=== PATIENT | male | born 1990 | race Caucasian/White ===

== ENCOUNTER 2018-11-24 18:07 | Emergency (ER) | payer MEDICARE, MEDICAID, SELFPAY ==
[2018-11-24 18:26] VITALS: BP 126/63; PULSE 71; RESP 14; TEMP 36.9; O2SAT 98
--- NOTE | 2018-11-24 18:48 | W.ED.GENAD ---
Discharge Plan Disposition Patient Disposition: HOME Condition: Stable Discharge Details Chief Complaint: Nk/Back Pain Clinical Impression: Fall, Back pain, H/O Spinal surgery Primary Care Provider: Marc Gibbs ED Provider: Komal Carbajal Home Meds and New Rx's Prescriptions: Continued albuterol sulfate 8.5 GM HFA aerosol inhaler 2 puff Inhalation Q6H PRN PRNQty: 1 RF: 0 ibuprofen [Ibuprofen IB] 200 MG tablet 600 mg PO BID PRNRF: 0 acetaminophen [Tylenol] 325 mg Tablet 325 mg PO Q4H PRNRF: 0 melatonin 5 MG tablet 5 mg PO HS PRN PRNRF: 0 Discharge Instructions Instructions: Back Pain (ED) Additional Instructions: Apply ice to the affected area several times daily for 20 minutes at a time. Alternate Tylenol and Motrin as needed and directed for pain. Follow-up with your primary care doctor in 1 week for reevaluation. Return immediately to the emergency department any worsening or concerning symptoms. Discharge Data Discharge Date/Time-TO BE ENTERED AT DEPARTURE: 11/24/18 20:10 Discharge Physician: Komal Carbajal Medical Decision Making 28yo M with a history of scoliosis with history of spinal implant in 2011 who presents for slip on ice and fall with twisting of his back yesterday. States he hit his left elbow and right knee but denies any pain in these areas. Patient states he is here mainly to assess his spinal implant. Tenderness to palpation along thoracic and lumbar spine. Well-healed vertical incision scar. No evidence of trauma or infection to back. Normal gait. Normal left elbow and right knee. No focal deficits. Neurovascular intact. Will give a dose of ibuprofen and sent for thoracic and lumbar spine x-ray. 1950 -- lumbar spine and thoracic spine x-rays negative. Patient feels better after ibuprofen. Patient instructed to follow-up with his primary care doctor for reevaluation and return here at any time if worse. Medical Records Medical records reviewed: Yes I reviewed the patient's medical records. Imaging Data Radiologic Study: Radiologist's impression: XR Thoracic Spine, 3 Views EXAM DATE/TIME: 11/24/2018 7:25 PM FINDINGS: Vertebrae: Moderate thoracic dextroscoliosis. Extensive thoracolumbar posterior fixation with no significant listhesis and a grossly satisfactory appearance of the hardware. No acute fracture or subluxation. Soft tissues: Normal. IMPRESSION: No acute bony pathology. XR Lumbar Spine, 4 or 5 Views EXAM DATE/TIME: 11/24/2018 7:25 PM FINDINGS: Vertebrae: Thoracolumbar fixation, lumbar fixation extending to the level of L3 in anatomic alignment with satisfactory appearance of the hardware. No acute fracture or subluxation. Minimal leftward curvature of the lumbar spine. Soft tissues: Normal. IMPRESSION: No acute bony pathology. HPI General Mode of arrival: ambulatory. Date/Time Provider Initiated Documentation: 11/24/18 18:26. Limitations to Documentation: no limitations. Information obtained by: patient. HPI Narrative: Patient is a 28yo M with a history of scoliosis with history of spinal implant in 2011 who presents for slip on ice and fall with twisting of his back yesterday. States he hit his left elbow and right knee but denies any pain in these areas. Patient states he is here mainly to assess his spinal implant. He denies any upper or lower extremity weakness or numbness. Patient states he took Motrin for pain this morning. Related Data Home Medications Medication Instructions Recorded Confirmed albuterol sulfate 2 puff INHALATION Q6H PRN PRN #1 12/18/14 11/24/18 [email or web address] ibuprofen [Ibuprofen IB] 600 mg PO BID PRN 05/07/16 11/24/18 melatonin 5 mg PO HS PRN PRN 12/27/17 11/24/18 acetaminophen [Tylenol] 325 mg PO Q4H PRN 11/24/18 11/24/18 Previous Rx's Medication Instructions Recorded albuterol sulfate 2 puff INHALATION Q6H PRN PRN #1 12/18/14 [email or web address] Allergies Allergy/AdvReac Type Severity Reaction Status Date / Time Sulfa (Sulfonamide AdvReac Unknown unknown Unverified 11/24/18 18:30 Antibiotics) tape Allergy Mild Skin Rash Uncoded 11/24/18 18:30 General Stated Complaint: Nk/Back Pain MICHAEL: 3 Review of Systems Review of Systems All systems reviewed & are unremarkable except as noted in HPI and below Constitutional Reports as per HPI, Denies chills and Denies fever(s) Eyes Denies blurry vision ENT Denies dizziness, Denies sore throat and Denies throat swelling Cardiovascular Denies chest pain and Denies dyspnea Respiratory Denies cough and Denies dyspnea Gastrointestinal Denies abdominal pain, Denies diarrhea and Denies vomiting Genitourinary Denies hematuria and Denies dysuria Musculoskeletal Reports back pain and Denies numbness Integumentary/Breasts Denies lesions and Denies rash Neurologic Denies dizziness, Denies focal weakness and Denies numbness Allergic/Immunologic Denies throat swelling [facility] Medical History ADHD (Acute) Asthma (Chronic) GERD (gastroesophageal reflux disease) (Chronic) Surgical History History of spinal fusion (Acute) History of appendectomy (Chronic) Social History Smoking/Tobacco Use Status: Never alcohol intake: current alcohol intake frequency: a few times a month substance use type: does not use Exam Const General: cooperative, healthy appearing and no acute distress HENMT Head: normal to inspection Face and sinus: normal facial exam Eyes General: appearance normal, both eyes and all related structures EOM: EOM intact bilaterally Neck Neck: normal visual inspection and No submandibular swelling Lymphatic: no lymphadenopathy noted Chest Chest: normal inspection of the chest and no tenderness Resp Effort & Inspection: normal respiratory effort and able to speak in complete sentences Auscultation: clear to auscultation bilaterally Cardio Rate: regular rate Rhythm: regular rhythm GI Inspection: normal to inspection Palpation: soft, not firm, not rigid and nontender Auscultation: normal bowel sounds Male General Exam: Yes normal external exam Back/Spine/Pelvis Thoracic/Lumbar Spine: surgical scar(s) present (Extending from length of upper thoracic spine down to end of lumbar spine. ) Pelvis: no pain with anterior-posterior compression Back/spine/pelvis image: 1. Midline surgical scar, well healed, no signs of acute infection. Significant tenderness to palpation extending along the length of scar which patient states is chronic but worse since fall Skin General skin exam: no rashes or lesions noted Neuro General: alert, awake and oriented x3 Cognition: normal cognition Speech: speech normal Motor: muscle tone normal throughout and strength 5/5 throughout Sensory Exam: no sensory deficits noted DTR's: Rt Patellar: 1+, Lt Patellar: 1+, Rt Ankle: 1+ and Lt Ankle: 1+ Plantar Reflexes: Equivocal: bilateral Extrem General: normal to inspection, full ROM, normal capillary refill, no calf tenderness bilaterally and no edema Left upper extremity: elbow/forearm Details: normal to inspection and normal ROM; no tenderness, no swelling, no lacerations, no ecchymosis, no crepitus and no deformity Right lower extremity: knee Details: normal to inspection and normal ROM; no tenderness, no swelling, no abrasions, no lacerations, no ecchymosis and no crepitus and foot Details: vascular exam Details: dorsalis pedis pulse present and posterior tibial pulse present Left lower extremity: foot Details: vascular exam Details: dorsalis pedis pulse present and posterior tibial pulse present Psych Appearance: grossly normal Mental Status: mental status grossly normal Speech and Movement: speech and movement normal Affect: normal affect Course Vital Signs Temperature 98.4 F 11/24/18 18:26 Pulse 71 11/24/18 18:26 Respiratory Rate 14 11/24/18 18:26 Blood Pressure 126/63 11/24/18 18:26 Pulse Oximetry 98 11/24/18 18:26 Temperature 98.4 F 11/24/18 18:26 Temperature Source Temporal Artery Scan 11/24/18 18:26 Pulse 71 11/24/18 18:26 Respiratory Rate 14 11/24/18 18:26 Respiratory Effort Non-Labored 11/24/18 18:29 Blood Pressure 126/63 11/24/18 18:26 Blood Pressure Position Sitting 11/24/18 18:26 Pulse Oximetry 98 11/24/18 18:26 Oxygen Delivery Method Room Air 11/24/18 18:26 Oxygen Flow Rate 0 11/24/18 18:26 Pain Level 8 11/24/18 18:32
[2018-11-24] MEDS: Ibuprofen 600 MG TAB PO (18:55)
--- NOTE | 2018-11-24 19:25 | DI.RAD_ITS ---
SYMPTOM/DIAGNOSIS: H/O SPINAL IMPLANT, H/O FALL, ASSESS HARDWARE, ? FX THORACIC AND LUMBAR SPINE: Three views of the thoracic spine and five views of the lumbar spine were obtained. There is a moderate biconvex thoracolumbar scoliosis with Redmond rods in position extending from upper thoracic to mid lumbar level. The fixation appears intact. No evidence of acute fracture. No other significant findings.
--- NOTE | 2018-11-24 19:32 | DI.VRAD_ITS ---
EXAM: XR Thoracic Spine, 3 Views EXAM DATE/TIME: 11/24/2018 7:25 PM CLINICAL HISTORY: 28 years old, male; Injury or trauma; Fall; Initial encounter; Blunt trauma (contusions or hematomas); Injury date: 11/24/18; Injury details: Back pain all over after fall; Prior surgery; Surgery date: 6+ months; Surgery type: Scoliosis hardware; Patient HX: Back pain after fall TECHNIQUE: XR of the thoracic spine, 3 views. COMPARISON: No relevant prior studies available. FINDINGS: Vertebrae: Moderate thoracic dextroscoliosis. Extensive thoracolumbar posterior fixation with no significant listhesis and a grossly satisfactory appearance of the hardware. No acute fracture or subluxation. Soft tissues: Normal. IMPRESSION: No acute bony pathology. Dictated and Authenticated by: Gina Estrada MD. Ordering:MANUEL Sauceda MD
--- NOTE | 2018-11-24 19:46 | DI.VRAD_ITS ---
EXAM: XR Lumbar Spine, 4 or 5 Views EXAM DATE/TIME: 11/24/2018 7:25 PM CLINICAL HISTORY: 28 years old, male; Injury or trauma; Fall; Initial encounter; Blunt trauma (contusions or hematomas); Injury date: 11/24/18; Prior surgery; Surgery date: 6+ months; Surgery type: Scoliosis hardware; Patient HX: Pain after fall TECHNIQUE: XR of the lumbar spine, 4 or 5 views. COMPARISON: CT ABD PELVIS WITH CONTRAST 12/25/2017 7:01 AM FINDINGS: Vertebrae: Thoracolumbar fixation, lumbar fixation extending to the level of L3 in anatomic alignment with satisfactory appearance of the hardware. No acute fracture or subluxation. Minimal leftward curvature of the lumbar spine. Soft tissues: Normal. IMPRESSION: No acute bony pathology. Dictated and Authenticated by: Gina Estrada MD. Ordering:MANUEL Sauceda MD
== END 2018-11-24 20:10 | disposition home or self-care (01) ==
PROVIDERS: Emergency Provider Physician Assistant; PCP Internal Medicine
DX: M54.5 Low back pain (principal); M54.6 Pain in thoracic spine; W01.0XXA Fall on same level from slipping, tripping and stumbling without subsequent striking against object, initial encounter
CPT/HCPCS: 99284; 72072; 72110; 99282

== ENCOUNTER 2020-08-22 15:59 | Outpatient (CLI) | payer MEDICARE, MEDICAID, SELFPAY ==
--- NOTE | 2020-08-22 14:15 | DI.RAD_ITS ---
EXAM: XR SHOULDER RT COMPLETE 2+V CLINICAL HISTORY: rt shoulder pain TECHNIQUE: COMPARISON: CR RIGHT SHOULDER COMPLETE from 10/02/2011 FINDINGS: Two views were obtained. Cartilaginous joint space of the glenohumeral joint appears fairly well romelia ntained. No bony or soft tissue abnormality seen. IMPRESSION: RADIATION DOSE DELIVERED: Total DLP
--- NOTE | 2020-08-22 14:30 | DI.RAD_ITS ---
EXAM: XR SCOLIOSIS T-L SPINE CLINICAL HISTORY: rt shoulder pain TECHNIQUE: COMPARISON: CR XR thoracic spine complete from 11/24/2018 FINDINGS: Three views were obtained. There is a moderate biconvex thoracolumbar scoliosis with Redmond rods in place from approximately T3 through L3. Rods appear intact as visualized. No other significant bony abnormality seen. IMPRESSION: RADIATION DOSE DELIVERED: Total DLP
--- NOTE | 2020-08-22 14:30 | DI.RAD_ITS ---
EXAM: XR CERVICAL SP DE LEON TRAUMA 2-3V CLINICAL HISTORY: prior fusion TECHNIQUE: COMPARISON: No exams were available for comparison FINDINGS: Two views were obtained. Alignment appears normal. Intervertebral disc spaces are well maintained. No bony abnormality seen. Prevertebral soft tissues appear intact. IMPRESSION: Negative examination of the cervical spine. RADIATION DOSE DELIVERED: Total DLP
== END 2020-08-22 16:19 ==
PROVIDERS: PCP Internal Medicine; Referring Provider Internal Medicine; Visit Provider Student in an Organized Health Care Education/Training Program
DX: M25.511 Pain in right shoulder (principal); Z98.1 Arthrodesis status; M54.12 Radiculopathy, cervical region; W00.0XXA Fall on same level due to ice and snow, initial encounter
CPT/HCPCS: 72081; 99204; 99215; 72040; 73030

== ENCOUNTER → 2020-09-05 15:00 | Outpatient (BNVA) | payer MEDICARE, MEDICAID, SELFPAY | PROVIDERS: PCP Internal Medicine; Referring Provider Internal Medicine; Visit Provider Student in an Organized Health Care Education/Training Program | DX: M54.2 Cervicalgia (principal); M54.6 Pain in thoracic spine; G89.29 Other chronic pain; M54.12 Radiculopathy, cervical region; M75.21 Bicipital tendinitis, right shoulder; M75.22 Bicipital tendinitis, left shoulder | CPT/HCPCS: 99213 ==

== ENCOUNTER → 2020-09-14 13:54 | Outpatient (BNVA) | payer MEDICARE, MEDICAID, SELFPAY | PROVIDERS: PCP Internal Medicine; Referring Provider Family Medicine; Visit Provider Nurse Practitioner Adult Health | DX: M54.12 Radiculopathy, cervical region (principal) | CPT/HCPCS: 95886; 95909; 99203; 99214 ==

== ENCOUNTER → 2020-11-21 14:56 | Outpatient (BNVA) | payer MEDICARE, MEDICAID, SELFPAY | PROVIDERS: PCP Internal Medicine; Referring Provider Internal Medicine; Visit Provider Student in an Organized Health Care Education/Training Program | DX: M75.21 Bicipital tendinitis, right shoulder (principal); M75.22 Bicipital tendinitis, left shoulder; M54.2 Cervicalgia; M54.6 Pain in thoracic spine; G89.29 Other chronic pain; M54.12 Radiculopathy, cervical region | CPT/HCPCS: 99213; 99214 ==

== ENCOUNTER → 2021-03-06 07:57 | Outpatient (BNVA) | payer MEDICARE, MEDICAID, SELFPAY | PROVIDERS: PCP Internal Medicine; Referring Provider Internal Medicine; Visit Provider Student in an Organized Health Care Education/Training Program | DX: M75.21 Bicipital tendinitis, right shoulder (principal); M75.22 Bicipital tendinitis, left shoulder; M54.2 Cervicalgia; M54.6 Pain in thoracic spine; G89.29 Other chronic pain | CPT/HCPCS: 99213 ==

== ENCOUNTER → 2021-04-24 08:20 | Outpatient (BNVA) | payer MEDICARE, MEDICAID, SELFPAY | PROVIDERS: PCP Internal Medicine; Referring Provider Internal Medicine; Visit Provider Student in an Organized Health Care Education/Training Program | DX: M75.21 Bicipital tendinitis, right shoulder (principal); M75.22 Bicipital tendinitis, left shoulder; M25.511 Pain in right shoulder; M75.51 Bursitis of right shoulder; M75.41 Impingement syndrome of right shoulder; M54.6 Pain in thoracic spine; G89.29 Other chronic pain; M54.2 Cervicalgia; M54.12 Radiculopathy, cervical region | CPT/HCPCS: 99214 ==

== ENCOUNTER 2021-05-02 02:15 | Outpatient (CLI) | payer MEDICARE, MEDICAID, SELFPAY ==
[2021-05-02 11:08] LABS: Source Nasal/Nares
[2021-05-02 13:31] LABS: COVID-19 PCR Negative (Negative)
== END 2021-05-02 02:16 | disposition home or self-care (01) ==
LOC: LBO 02:16
PROVIDERS: PCP Internal Medicine; Visit Provider Student in an Organized Health Care Education/Training Program
DX: Z20.822 Contact with and (suspected) exposure to COVID-19 (principal); Z01.818 Encounter for other preprocedural examination
CPT/HCPCS: 87635

== ENCOUNTER 2021-05-04 06:16 | Day surgery (SDC) | payer MEDICARE, MEDICAID, SELFPAY ==
[2021-05-04] VITALS (10 sets, daily range): BP systolic 87–119; BP diastolic 45–76; PULSE 75–89; RESP 16–27; TEMP 36.2–36.3; O2SAT 92–97; BMI 27.3
--- NOTE | 2021-05-04 06:58 | W.ANESPRE ---
General Info Date of Service Date Performed: 05/04/21 Height: 5 ft 6.14 in Weight: 77.2 kg Body Mass Index (BMI): 27.3 Surgical Procedure: Operation Date: 05/04/21 07:40 Proposed Procedures Side Surgeon p Shoulder Arthroscopy with extensive debridement,subacromial decompression, distal clavicle exc Right Daryl Gutierrez MD s Shoulder Bicep Tenodesis Right Daryl Gutierrez MD Meds Allergies and Home Medications Allergies Allergy/AdvReac Type Severity Reaction Status Date / Time erythromycin base Allergy Verified 05/02/21 11:00 Sulfa (Sulfonamide AdvReac Intermediate Hives Unverified 05/02/21 11:00 Antibiotics) tape Allergy Severe Skin Rash Uncoded 05/02/21 11:00 Home Medication Medication Instructions Recorded ibuprofen [Ibuprofen IB] 600 mg PO BID PRN 05/07/16 acetaminophen [Tylenol] 325 mg PO Q4H PRN 11/24/18 naproxen 500 mg tablet,delayed 500 mg PO BID PRN 09/14/20 release omeprazole 20 mg capsule,delayed 20 mg PO DAILY PRN 11/21/20 release Current Visit Medications: Current Medications Generic Name Dose Route Start Last Admin Trade Name Freq PRN Reason Stop Dose Admin Ephedrine Sulfate 0 mg 05/04/21 06:36 Ephedrine 50 Mg/Ml Vial IVP DIRECTED PRN Fentanyl 0 mcg 05/04/21 06:36 Fentanyl 100 Mcg/2 Ml Vial IVP DIRECTED PRN Hydromorphone HCl 0 mg 05/04/21 06:36 Hydromorphone 2 Mg/Ml Vial IVP DIRECTED PRN Ringer's Solution 1,000 mls @ 100 mls/hr 05/04/21 06:00 IV 06/02/21 23:59 INFUSION ANGI Cefazolin Sodium/Dextrose 2 gm in 50 mls @ 100 mls/hr 05/04/21 06:00 Ancef Duplex IVPB 06/02/21 23:59 PREOP ANGI IV Miscellaneous Supplies 1 each 05/04/21 06:00 Iv Access IV 06/02/21 23:59 DIRECTED ANGI Naloxone HCl 0 mg 05/04/21 06:36 Naloxone 0.4 Mg/Ml Vial IVP PRN PRN Sodium Chloride 0 ml 05/04/21 06:00 Normal Saline Flush 10 Ml Syr IV 06/02/21 23:59 PRN PRN Sodium Chloride 0 ml 05/04/21 06:00 Normal Saline 10 Ml Vial IJ 06/02/21 23:59 DIRECTED PRN Sterile Water 0 ml 05/04/21 06:00 Water,Injection,Sterile 10 Ml Vial IJ 06/02/21 23:59 DIRECTED PRN PFSH Active Problems Active Problems: Problem Status Onset Code Impingement syndrome of right shoulder M75.41 Bursitis of right shoulder M75.51 Pain in right acromioclavicular joint M25.511 Tendinitis of long head of biceps brachii of both shoulders M75.21, M75.22 Chronic thoracic back pain M54.6, G89.29 Cervicalgia M54.2 Cervical radiculopathy M54.12 Medical History Medical History ADD (attention deficit disorder) ADHD Aspergers' syndrome Asthma Dysphonia GERD (gastroesophageal reflux disease) Pain in left shoulder Right foot pain Right hand weakness Right shoulder pain Scoliosis Sleep apnea Thoracic back pain Surgical History Surgical History History of appendectomy History of spinal fusion Tobacco Smoking/Tobacco Use Status: Never Alcohol Alcohol Intake: current Alcohol intake frequency: holidays/special occasions only Substance Use Substance use: Daily Substance use type: other Details: CBD Vital Signs and Lab Results Vital Signs Most Recent Vital Signs in EMR: Most Recent Vital Signs Temp Pulse Resp BP Pulse Ox 36.3 C L 75 16 119/76 97 05/04/21 06:26 05/04/21 06:26 05/04/21 06:26 05/04/21 06:26 05/04/21 06:26 Lab Results Blood Type / Crossmatch: No Data to Display Complete Blood Count: No Data to Display Complete Metabolic Panel: No Data to Display Liver Function Panel: No Data to Display Coagulation Panel: No Data to Display Cardiac Panel: No Data to Display Arterial Blood Gas: No Data to Display Venous Blood Gas: No Data to Display Pancreas Panel: No Data to Display Thyroid Panel: No Data to Display Infectious Disease: Coronavirus (COVID-19)(PCR) Negative (Negative) 05/02/21 08:26 05/02/21 Coronavirus 2019 Source Nasal/Nares 05/02/21 08:26 05/02/21 Blood Cultures: No Data to Display Toxicology Panel: No Data to Display Anesthesia Assessment and Plan Anesthesia History Personal History: No History of Anesthesia Complications Family History: No Family History of Anesthesia Complications Exercise Tolerance Exercise Tolerance: Metabolic Equivalents>4 Pertinent Negatives Pertinent Negatives: No Major Cardiovascular Symptoms or Complaints and No Major Pulmonary Symptoms or Complaints Cardiac & Pulmonary Exam Cardiac Exam: Normal S1/S2 Heart Sounds Pulmonary Exam: Clear Bilateral Breath Sounds Airway Exam Known Difficult Airway: No Mallampati Class: 2 Mouth Opening: Normal (> 3cm) Thyromental Distance: Greater than 3 cm Neck Range of Motion: Full ROM Neck Circumference: Normal Teeth Condition: Normal Dentition ASA Classification ASA Score: ASA 2 Emergency Case?: No NPO Status NPO Status: NPO Clears >2 hours, Solids >8 hours Anesthesia Plan Resuscitation Status: Full Code Anesthesia Technique: General Anesthesia Airway Planned: Endotracheal Tube Pain Management: Surgeon and patient request nerve block Monitors Used: Standard Monitors
[2021-05-04] MEDS: ceFAZolin 2 GM/50 ML BAG IVPB (08:01)
--- NOTE | 2021-05-04 08:26 | W.ANESNERVE ---
Nerve Block Single Injection Procedure Date and Time Date Performed: 05/04/21 Procedure Start: 07:25 Location Where Procedure Performed Procedure Location: PACU Reason Performed: Postoperative Analgesia Requesting Provider: Daryl Gutierrez Timeout Performed Timeout Performed: No Monitoring Used ECG, Blood Pressure and SpO2 Sterility Sterility: Hand Hygiene, Surgical Cap, Surgical Mask, Sterile Gloves, Sterile Drape/Sheet, Eye Protection and Chlorhexidine Sedation Given During Procedure Sedation Given (Indicate Dose Given): Versed IV Dose:: 2 Patient Mental Status Patient Mental Status: Awake Nerve Block 1st Nerve Block: Laterality: Right Block Type: Interscalene Needle / Catheter Used: 100mm SonoPlex II Local Anesthetic Bolus (Indicate Dose Given): Lidocaine used for local infiltration of skin, Injected in 3-5ml increments after negative blood aspiration, Bupivacaine 0.5% Dose:: 15 mL and Exparel Dose:: 10 mL Additives (Indicate Dose Given): None Ultrasound: Sterile probe cover and gel used Ultrasound Image Saved?: Yes Nerve Stimulator: Not Used Paresthesia: None Procedure Tolerated: No Complications Procedure Outcome: Successful Performed By: Yessica Raya
[2021-05-04] MEDS: Bupivacaine 0.5% Pres-Free 30 ML VIAL (09:48)
[2021-05-04] MEDS: Lactated Ringers 1,000 ML 100 ML IV (09:49)
[2021-05-04] MEDS: EPINEPHrine 30 MG/30 ML VIAL (09:49)
--- NOTE | 2021-05-04 10:05 | PDOC.DSDIS_ITS ---
Discharge Plan Disposition Patient Disposition: HOME Condition: Stable Discharge Details Reason For Visit: Right shoulder surgery Attending Provider: Daryl Gutierrez Primary Care Provider: Marc Gibbs Home Meds and New Rx's Prescriptions: New aspirin 81 mg tablet,delayed release (DR/EC) 81 mg PO BID 14 Days Qty: 28 RF: 0 naproxen 250 mg tablet 250 - 500 mg PO BID PRN (Reason: Moderate pain or swelling) Qty: 60 RF: 0 oxycodone 5 mg tablet 5 - 10 mg PO Q4H PRN (Reason: moderate to severe pain) Qty: 16 RF: 0 Continued omeprazole 20 mg capsule,delayed release(DR/EC) 20 mg PO DAILY PRNRF: 0 acetaminophen [Tylenol] 325 mg Tablet 325 mg PO Q4H PRNRF: 0 Discontinued naproxen 500 mg tablet,delayed release (DR/EC) 500 mg PO BID PRNRF: 0 ibuprofen [Ibuprofen IB] 200 MG tablet 600 mg PO BID PRNRF: 0 Discharge Instructions Additional Instructions: Surgery: Shoulder arthroscopy with extensive debridement, distal clavicle ex cision, subacromial decompression, and open biceps tenodesis. Activity: You should gradually increase range of motion motion and use of your shoulder. You may use your shoulder for all regular activities. Avoid heavy lifting, reaching overhead, and lifting away from body for approximately 6 to 8 weeks. You may use the sling whenever you are out of the house for a few weeks. At home it is best to remove the sling and rest the arm on a pillow at your side or support the operative side with your other hand. A physical therapy prescription will be sent electronically to start in about 2-3 weeks. Prescriptions: Aspirin 81 mg take 1 twice daily to prevent a blood clot for 2 weeks Naproxen 250 mg take 1-2 every 12 hours with a meal as needed for moderate pain Oxycodone 5 mg take 1-2 every 4-6 hours as needed for severe pain You may use [id number] Tylenol (acetaminophen) as needed for mild pain. These pain medications may be taken all at once or in different combinations as needed. Also, recommend Colace (docusate) as a stool softener as surgery and pain medicine cause constipation. Dressings: Remove shoulder bandage after 3 days. Leave the sticky Steri-Strips in place until they fall off or remove them after you shower. Cover the incisions with Band-Aids or leave them open to air. The biceps bandage (inside upper arm) is glued on separately. You may leave this one on a few days longer if it is difficult to remove. There is also glue underneath this bandage that can be left in place until it peels off. You may shower after 5 days. Follow-up: 10-[address] Gutierrez You may take off the leg compression stockings this evening at home. You may also leave them on a few days longer if you have a history of leg swelling or edema. Let us know right away if you develop any redness, drainage, fevers, chest pain, or trouble breathing. Do not drink alcohol or drive for at least 24 hours after anesthesia. Please call the office during business hours with any questions or concerns. Referrals: Daryl Gutierrez MD [ [facility] STAFF PHYSICIAN] - Discharge Orders Discharge Orders: Discharge Order (Routine); Ordered 05/04/21 Ordered By: Daryl Gutierrez DS: Diagnosis Discharge Diagnosis (1) Impingement syndrome of right shoulder: Status: Acute (2) Bursitis of right shoulder: Status: Acute (3) Pain in right acromioclavicular joint: Status: Acute (4) Tendinitis of long head of biceps brachii of both shoulders: Status: Acute
--- NOTE | 2021-05-04 10:13 | ROE_ITS ---
Date of service: 05/04/21 Time of Service: 08:00 Operative Note Operative Note DATE OF PROCEDURE: 05/04/21 PRE-OP DIAGNOSIS: Right: 1. Labral tear 2. LHB tendinopathy 3. Bursitis 4. Impingement 5. AC Joint pain POST-OP DIAGNOSIS: same PROCEDURE: Right: 1. Arthroscopic distal clavicle excision, CPT# 47520. This involved arthroscopically exposing the underside of the acromioclavicular joint, smoothing out bone spurs, and using a mechanical shaver to remove a few millimeters of the distal clavicle so there was no bone left engaging the acromion. 2. Open biceps tenodesis, CPT# 46653. This involved reattaching the long head of the biceps tendon to the proximal humerus in the sub-pectoral area of the bicipital groove at the correct tension. 3. Extensive debridement, CPT# 39792. This involved using arthroscopic hand instruments, power instruments, and radiofrequency instruments to release to release the long head of the biceps tendon and debride areas of labral tearing, synovitis within the glenohumeral joint anteriorly, superiorly and posteriorly, and chondromalacia with cartilage fraying and small flaps about the central glenoid. 4. Subacromial decompression with partial acromioplasty, CPT# 55976. This involved using arthroscopic power instruments and a radiofrequency wand to complete a bursectomy and remove bone spurs on the undersurface of the acromion. The speech correction assistant was medically required in order to help assist in techniques above, which require positioning the arm, holding the arthroscope, and manipulating multiple instruments and sutures at the same time. This cannot be done without the help of an experienced speech correction assistant. SURGEON: Daryl Gutierrez INTERVENTION MANAGER: Keysha Tsang ANESTHESIA TYPE: Local By Surgeon, General LMA/ETT and Primary Nerve Block Refer to Anesthesia Record ESTIMATED BLOOD LOSS: 5 PATHOLOGY: none sent COMPLICATIONS: None Patient was transported to: PACU Patient's condition: stable Implants: Arthrex: Unicortical Proximal Biceps Tenodesis Button Indications: The patient was diagnosed with the above conditions and appropriat jason indicated for surgical intervention. Please see complete medical record for details. Findings: Exam under anesthesia: Full range of motion with no instability Glenohumeral joint: Mild anterior central labral fraying. Moderate superior and posterior superior labral fraying. Intact biceps anchor however with somewhat redundant labral tissue. Moderate long head of the biceps tendon injection. Moderate anterior and posterior synovitis. Intact articular rotator cuff. Intact subscapularis. Small 2-3 mm central glenoid grade 3 cartilage lesion. Humeral head articular cartilage intact. Subacromial space: Significant bursitis. Mild undersurface acromial bone spur. Mildly engaging distal clavicle on acromion. Intact bursal rotator cuff. Procedure Description: In the operating room, general anesthesia was induced. Bilateral shoulders were examined. The patient was positioned in the beachchair position. All bony prominences were well-padded. Preoperative antibiotics were administered. The shoulder was prepped and draped in the usual sterile fashion. The correct patient, procedure, and side of the procedure were all verified prior to incision. Starting through the posterior portal a standard complete diagnostic arthroscopy was performed of the glenohumeral joint including inspection of the long head of the biceps, anterior and superior labrum, subscapularis tendon, supraspinatus and infraspinatus tendons, and axillary recess. The glenoid and humeral head cartilage as well as the posterior labrum were inspected from an anterior viewing portal. Significant findings and interventions noted above. The biceps tendon was released from the superior labrum using arthroscopic scissors. The anterior portal was redirected towards the undersurface of the AC joint. A shaver and electrocautery device were used to clear soft tissue from the undersurface of the AC joint. A mechanical shaver was then inserted and used to remove the distalmost few millimeters of the distal clavicle. Care was taken to ensure that proper amount of bone was removed and there was no engaging bone left behind while preserving posterior and superior capsule. A lateral portal was omitted. A combination of power instruments and a radiofrequency ablator were used through the anterior portal to debride bursitis anteriorly, posteriorly, and laterally as well as expose and smooth bone spurring on the undersurface of the acromion. The coracoacromial ligament was only minimally released. The bursectomy was completed with the arm in internal and external rotation and the rotator cuff was thoroughly inspected with findings noted above. The shoulder was drained of arthroscopic fluid. 20 cc of 0.5% bupivacaine with epinephrine was infiltrated about a 3 cm longitudinal incision at the inferior margin of the pectoralis major localized over the long head of the biceps tendon. Blunt and sharp dissection were used to expose the tendon in the bicipital groove. The tendon was brought out of the wound and kept off the skin on top of a blue towel. The correct location for sub-pectoral fixation was localized, prepped with a rasp, and then drilled with a 3.2 mm drill pin in a unicortical fashion. Using a fiber loop suture the tendon was prepped from the musculotendinous junction a few centimeters proximal. The excess tendon was amputated. The free suture ends were then passed through the unicortical button implant. The drill pin was removed and the implant was placed into the humeral intramedullary canal. The button was flipped and the sutures were tensioned bringing the tendon down to bone. Tension and fixation were then tested and found to be appropriate. The free end of the sutures were brought on opposite sides of the tendon and then tied over the top compressing tendon to bone. The wound was copiously irrigated with normal saline. Subcutaneous tissue was closed using 3-0 Monocryl in a buried interrupted fashion. Skin was closed using 3-0 Monocryl in a buried subcuticular running fashion. Skin glue was applied over the incision. Mastisol was applied about the incision. The incision was covered with Telfa, gauze, and covered with a Tegaderm dressing. All portal sites were copiously irrigated. These incisions were closed using 3- 0 Monocryl in a buried fashion and covered with Steri-Strips, Xeroform, dry gauze, and ABDs. The dressings were covered and secured with Medipore tape. The operative extremity was placed into a sling for immobilization. The patient awoke from anesthesia without complication and was transferred to the recovery room in a stable condition.
--- NOTE | 2021-05-04 13:46 | W.ANESPOSTOP ---
Postoperative Evaluation Date, Time and Location Date Performed: 05/04/21 Time Performed: 11:38 Patient Location: Day Surgery Unit Vital Signs Most Recent Imported Vital Signs: Most Recent Vital Signs Temp Pulse Resp BP Pulse Ox 36.2 C L 89 16 102/68 93 05/04/21 12:31 05/04/21 12:31 05/04/21 12:31 05/04/21 12:31 05/04/21 12:31 Pain Score Most Recent Pain Score: Most Recent Pain Score Pain Level 0 05/04/21 12:31 Assessment Mental Status: Awake (Alert & Oriented to Patient Baseline) Airway and Respiratory Function: Patent airway with normal (patient baseline) respiratory exam Cardiovascular Function: Hemodynamically Stable Hydration Status: Adequately Hydrated Nausea & Vomiting: No Nausea or Vomiting Pain: Pt. Denies Any Pain Peripheral Nerve Block: Regional nerve block not resolved at time of post operative discharge
== END 2021-05-04 14:30 | disposition home or self-care (01) ==
PROVIDERS: PCP Internal Medicine; Visit Provider Student in an Organized Health Care Education/Training Program
PROC: (CPT 29805; principal; 2021-05-04 07:30)
PROC: (CPT 23430; 2021-05-04 07:30)
DX: M75.41 Impingement syndrome of right shoulder (principal); M75.51 Bursitis of right shoulder; M75.21 Bicipital tendinitis, right shoulder; S43.491A Other sprain of right shoulder joint, initial encounter
CPT/HCPCS: 23430; 29824; 29823; 29826; 76942; J0131; J0690; J1100; J1885; J2001; J2250; J2405

== ENCOUNTER → 2021-05-16 09:04 | Outpatient (BNVA) | payer MEDICARE, MEDICAID, SELFPAY | PROVIDERS: PCP Internal Medicine; Referring Provider Internal Medicine; Visit Provider Student in an Organized Health Care Education/Training Program | DX: Z47.89 Encounter for other orthopedic aftercare (principal); M75.41 Impingement syndrome of right shoulder; M75.51 Bursitis of right shoulder; M25.511 Pain in right shoulder; M75.21 Bicipital tendinitis, right shoulder ==

== ENCOUNTER → 2021-07-04 08:54 | Outpatient (BNVA) | payer MEDICARE, MEDICAID, SELFPAY | PROVIDERS: PCP Internal Medicine; Referring Provider Internal Medicine; Visit Provider Student in an Organized Health Care Education/Training Program | DX: Z47.89 Encounter for other orthopedic aftercare (principal); M75.21 Bicipital tendinitis, right shoulder; M75.41 Impingement syndrome of right shoulder; M75.51 Bursitis of right shoulder ==

== ENCOUNTER → 2021-09-05 07:50 | Outpatient (BNVA) | payer MEDICARE, MEDICAID, SELFPAY | PROVIDERS: PCP Internal Medicine; Referring Provider Family Medicine; Visit Provider Student in an Organized Health Care Education/Training Program | DX: Z47.89 Encounter for other orthopedic aftercare (principal); M25.511 Pain in right shoulder ==

== ENCOUNTER 2021-09-09 02:15 | Emergency (ER) | payer MEDICARE, MEDICAID, SELFPAY ==
[2021-09-09 02:18] VITALS: BP 125/80; PULSE 85; RESP 18; TEMP 36.8; O2SAT 98
--- NOTE | 2021-09-09 02:22 | ED.GENADUL_ITS ---
Discharge Plan Disposition Patient Disposition: HOME Condition: Good Discharge Details Clinical Impression: Acute tonsillitis Primary Care Provider: Jose Astorga ED Provider: Ivan Saenz Meds and New Rx's Prescriptions: New clindamycin HCl 300 mg capsule 300 mg PO Q6H Qty: 20 RF: 0 Continued methylphenidate HCl [Concerta] 18 mg tablet extended release 24hr 18 mg PO DAILY RF: 0 omeprazole 20 mg capsule,delayed release(DR/EC) 20 mg PO DAILY PRNRF: 0 naproxen 250 mg tablet 250 - 500 mg PO BID PRN (Reason: Moderate pain or swelling) Qty: 60 RF: 0 Changed acetaminophen [Tylenol] 325 mg Tablet 650 mg PO Q6H PRN PRNQty: 0 RF: 0 Discharge Instructions Instructions: Tonsillitis (ED) Additional Instructions: There is no evidence of abscess on CAT scan. You should improve with the steroids and antibiotics. Be sure to drink plenty of fluids. May use acetaminophen and naproxen for pain. Cepacol lozenges are also likely to help. Follow-up with primary care next week if not improving. Return to ED for new or worsening symptoms especially inability to swallow, respiratory difficulty, other concerns. There is a Covid swab pending so you should quarantine at home until results. Stand Alone Forms: PENDING COVID-19 TESTING Referrals: Jose Astorga MD [Primary Care Provider] - Medical Decision Making Patient presenting with sore throat and associated difficulty swallowing, hoarseness, pain at the base of his tongue, pain with movement of his neck. No evidence clinically of peritonsillar abscess. Consider retropharyngeal abscess. IV established and fluids, clindamycin, dexamethasone, ketorolac ordered. Will obtain rapid strep, Monospot, CBC and BMP. Covid swab sent. CT of the neck to evaluate for abscess. Rapid strep negative. Monospot negative. CBC and BMP unremarkable. CT scan without abscess. Acute tonsillitis by CT. We will plan discharge on clindamycin, supportive care, follow-up PCP next week if not improving. Return to ED if new or worsening symptoms. Lab Data Lab results reviewed: Yes I reviewed the patient's lab results. HPI General Mode of arrival: ambulatory . Date/Time Provider Initiated Documentation: 09/09/21 02:19 . Limitations to Documentation: no limitations . Information obtained by: patient and RN notes reviewed . HPI Narrative: Patient presents to ED with sore throat that started 3 days ago. Unable to sleep tonight because of pain, difficulty swallowing, difficulty breathing. He denies any fever. He does have ear pain, pain at the back of his tongue, pain in his neck with swallowing or movement. He is hoarse. He denies chest pain, abdominal pain, muscle pain, joint pain. He has no rash. Denies nasal congestion or discharge. Does have a cough but thinks it is more related to secretions. He does not have any shortness of breath. He is vaccinated against Covid. Related Data Home Medications Medication Instructions Recorded Confirmed omeprazole 20 mg capsule,delayed 20 mg PO DAILY PRN 11/21/20 09/05/21 release naproxen 250 - 500 mg PO BID PRN #60 tab 05/04/21 09/09/21 methylphenidate HCl 18 mg 18 mg PO DAILY 07/04/21 09/09/21 tablet,extended release 24 hr acetaminophen [Tylenol] 650 mg PO Q6H PRN PRN #0 tab 09/09/21 09/09/21 clindamycin HCl 300 mg PO Q6H #20 cap 09/09/21 Previous Rx's Medication Instructions Recorded naproxen 250 - 500 mg PO BID PRN #60 tab 05/04/21 acetaminophen [Tylenol] 650 mg PO Q6H PRN PRN #0 tab 09/09/21 clindamycin HCl 300 mg PO Q6H #20 cap 09/09/21 Allergies Allergy/AdvReac Type Severity Reaction Status Date / Time erythromycin base Allergy Verified 09/09/21 03:11 Sulfa (Sulfonamide AdvReac Intermediate Hives Unverified 09/09/21 03:11 Antibiotics) tape Allergy Severe Skin Rash Uncoded 09/09/21 03:11 General Stated Complaint: Sorethroat MICHAEL: 4 Review of Systems Narrative: As documented in HPI otherwise negative as below. Const: no fever, chills, weakness Resp: no SOB, pleuritic pain CV: no CP, diaphoresis, edema, syncope GI: no abdominal pain, nausea, vomiting, diarrhea Neuro: no headache, numbness, focal weakness, confusion PFSH Medical History ADHD Aspergers' syndrome Asthma Dysphonia GERD (gastroesophageal reflux disease) Scoliosis Sleep apnea Surgical History History of appendectomy History of spinal fusion Social History Smoking/Tobacco Use Status: Never Smoking risk assessment performed?: Yes Alcohol Intake: current Alcohol Intake frequency: holidays/special occasions only Drug use: Daily Substance use type: other Details: CBD Household members: none Housing: apartment Pets and animals: Yes Pets and animals: dog(s) Current gender identity: male What type of physical activity do you participate in: walking Seatbelt use: always Do you feel safe at home: Yes Do you feel safe in your relationship?: Yes Exam Narrative Exam Narrative: Const: WDWN male in NAD. HEENT: NC/AT. Normal facial exam. OP with enlarged but symmetrical tonsils. Erythema but no exudates. Uvula mildly swollen. TMs clear. Eyes: Normal conjunctiva and sclera. Neck: Supple. Trachea midline. Some tender cervical adenopathy. Lungs: Normal respiratory effort. Lungs are clear. Cor: RRR without murmur/gallop. Neuro: A+O x 3. Normal speech, mentation, gait. Cranial nerves II - XII grossly intact. No gross motor or sensory deficit. Ext: No C/C/E. Skin: Warm and dry without rash. Course Vital Signs Vital signs: Vital Signs Temperature 98.2 F 09/09/21 02:18 Pulse 85 09/09/21 02:18 Respiratory Rate 18 09/09/21 02:18 Blood Pressure 125/80 09/09/21 02:18 Pulse Oximetry 98 09/09/21 02:18 Temperature 98.2 F 09/09/21 02:18 Temperature Source Tympanic 09/09/21 02:18 Pulse 85 09/09/21 02:18 Respiratory Rate 18 09/09/21 02:18 Blood Pressure 125/80 09/09/21 02:18 Blood Pressure Position Sitting 09/09/21 02:18 Pulse Oximetry 98 09/09/21 02:18 Oxygen Delivery Method Room Air 09/09/21 02:18 Oxygen Flow Rate 0 09/09/21 02:18 Pain Level 7 09/09/21 02:18
--- NOTE | 2021-09-09 02:30 | DI.CT_ITS ---
Exam(s) CT NECK W EXAM: CT NECK W CLINICAL HISTORY: throat pain/swelling; unable to swallow. TECHNIQUE: Imaging Protocol: Axial computed tomography images with coronal and sagittal reformatted images were created and reviewed. CONTRAST MATERIAL: Intravenous: Omnipaque 350 Contrast volume:100 mL COMPARISON: No exams were available for comparison FINDINGS: Orbits and orbital soft tissues: Within normal limits. Visualized paranasal sinuses: Within normal limits. Nasopharynx: Within normal limits. Oropharynx: There is prominence of the palatine tonsils bilaterally. No focal fluid collection is se en to suggest an abscess. Hypopharynx: Within normal limits. Larynx: Within normal limits. Retropharyngeal space: Within normal limits. Parotids/submandibular: Within normal limits. Thyroid gland: Within normal limits. Lymphadenopathy: Mildly enlarged reactive lymph nodes bilaterally at the level of the angle of the m andible. The largest is on the left and measures 1 cm in short axis. Trachea: Within normal limits. Lung apices: Within normal limits. Bones: Within normal limits. Carotids/Jugular: Within normal limits. Soft tissues: Within normal limits. IMPRESSION: Acute tonsillitis. RADIATION DOSE DELIVERED: 371.86mGy.cm Total DLP 371.86mGy.cm Total DLP DATA REPOSITORY: All CT scans at this facility are submitted to the National Radiology Data Registry (NRDR) Dose Index Registry (DIR) with the [employer] ([employer]). RADIATION OPTIMIZATION: All CT scans at this facility use at least one of these dose optimization te chniques: automated exposure control; mA and/or kV adjustment per patient size (includes targeted exa ms where dose is matched to clinical indication); or iterative reconstruction.
[2021-09-09 02:57] LABS: Mono Screening Negative (Negative)
[2021-09-09] MEDS: Dexamethasone 10 MG/ML VIAL IVP (03:00)
[2021-09-09] MEDS: Ketorolac 30 MG/ML VIAL IVP (03:01)
[2021-09-09] MEDS: Normal Saline 1,000 ML 1000 ML IV (03:03)
[2021-09-09 03:06] LABS: BUN 18 mg/dL (7-18); CREATININE 0.9 mg/dL (0.70-1.30); Calcium 8.7 mg/dL (8.5-10.1); Chloride 106 mmol/L (98-107); Glucose 97 mg/dL (74-106); Potassium 3.7 mmol/L (3.5-5.1); Sodium 146 mmol/L (136-145)
[2021-09-09 03:10] LABS: Abs Immature Grans 0.01 10^3/uL (0.0-0.06); Absolute Basophil Count 0.06 10^3/uL (0.0-0.2); Absolute Eosinophil Count 0.18 10^3/uL (0.0-0.7); Absolute Lymphocyte Count 2.02 10^3/uL (1.2-3.4); Absolute Monocyte Count 0.83 10^3/uL (0.1-0.8); Absolute Neutrophil Count 5.35 10^3/uL (1.2-6.7); Basophils % 0.7; Eosinophils % 2.1; HCT 45.2 % (40.0-50.0); HGB 14.9 g/dL (13.5-17.5); Immature Grans % 0.1; Lymphocytes % 23.9; MCH 27.4 pg (27.0-33.0); MCV 83.1 fL (80-95); MPV 9.7 fL (8.0-11.0); Monocytes % 9.8; Neutrophils % 63.4; Nucleated RBC 0 %; Platelet Count 321 10^3/uL (130-400); RBC 5.44 10^6/uL (4.36-5.78); RDW 12.3 % (11.8-14.1); RDW-SD 37.1 fL; WBC 8.45 10^3/uL (4.4-10.8)
[2021-09-09] MEDS: CLINDAMYCIN 600 MG/50 ML BAG 100 MG IVPB (03:11)
[2021-09-09] MEDS: Normal Saline - Diluent 50 ML VIAL IV (03:19)
[2021-09-09] MEDS: Omnipaque 350 MG/ML 100 ML BTL IJ (03:19)
--- NOTE | 2021-09-09 03:29 | DI.VRAD_ITS ---
PROCEDURE INFORMATION: Exam: CT Neck With Contrast Exam date and time: 09/09/2021 2:38 AM Age: 31 years old Clinical indication: Painful swallowing and throat pain; Patient HX: Throat pain/swelling; Unable to swallow TECHNIQUE: Imaging protocol: Computed tomography images of the neck with contrast. COMPARISON: CR XR CERVICAL SP DE LEON TRAUMA 2-3V 08/22/2020 2:48 PM FINDINGS: Nasopharynx: Unremarkable. Oropharynx: Symmetric prominence of palatine tonsils. Hypopharynx: Unremarkable. Larynx: Unremarkable. Normal epiglottis. Retropharyngeal space: Unremarkable. Submandibular/Parotid glands: Normal. Glands are normal in size. Thyroid: Normal. No enlarged or calcified nodules. Lymph nodes: Unremarkable. No lymphadenopathy. Trachea: Visualized trachea is unremarkable. Lungs: Unremarkable as visualized. Bones/joints: Prior scoliosis surgery. No acute fracture. Soft tissues: No significant soft tissue swelling. IMPRESSION: Acute tonsillitis. Dictated and Authenticated by: Magdaleno Diaz MD. Ordering:ABIGAIL Love MD
[2021-09-10 09:49] LABS: COVID-19 RT-PCR UVMMC Result Negative (Negative)
--- NOTE | 2021-09-12 08:28 | NUR.NOTE ---
informed via phone that covid result was negative.Nursing Note:
== END 2021-09-09 04:15 | disposition home or self-care (01) ==
PROVIDERS: Emergency Provider Emergency Medicine; PCP Family Medicine
DX: J03.80 Acute tonsillitis due to other specified organisms (principal); R13.10 Dysphagia, unspecified; M54.2 Cervicalgia; Z20.822 Contact with and (suspected) exposure to COVID-19; Z03.818 Encounter for observation for suspected exposure to other biological agents ruled out
CPT/HCPCS: 36415; 70491; 80048; 87880; 96361; 96365; 96375; 99285; U0003; U0005; 85025; 86308; 87081; 99284; J1100; J1885; J3490

== ENCOUNTER 2021-11-16 10:28 | Outpatient (CLI) | payer MEDICARE, MEDICAID, SELFPAY ==
--- NOTE | 2021-11-16 10:00 | DI.RAD_ITS ---
Exam(s) XR SHOULDER RT COMPLETE 2+V EXAM: XR SHOULDER RT COMPLETE 2+V CLINICAL HISTORY: s/p fall yesterday. TECHNIQUE: 2D digital imaging was performed. FINDINGS: BONES: No acute fracture is present. No bony destructive lesion is seen. Rods in the spine. Metalli c density in proximal humeral shaft related to prior rotator cuff surgery. JOINTS: No dislocation present. Glenohumeral joint space is well maintained. AC joint is not widene d. SOFT TISSUE: Normal. No pneumothorax. IMPRESSION: Unremarkable radiographs of the right shoulder. DATA REPOSITORY: RADIATION DOSE DELIVERED:
== END 2021-11-16 10:29 | disposition home or self-care (01) ==
LOC: DIORS 10:28
PROVIDERS: PCP Family Medicine; Referring Provider Family Medicine; Visit Provider Physician Assistant Surgical
DX: G89.11 Acute pain due to trauma (principal); M25.511 Pain in right shoulder
CPT/HCPCS: 99213; 73030

== ENCOUNTER 2022-02-16 11:51 | Emergency (ER) | payer MEDICARE, MEDICAID, SELFPAY ==
[2022-02-16 11:53] VITALS: BP 139/78; PULSE 80; RESP 16; TEMP 36.8; O2SAT 97
--- NOTE | 2022-02-16 12:15 | DI.RAD_ITS ---
Exam(s) XR HAND RT COMPLETE EXAM: XR HAND RT COMPLETE CLINICAL HISTORY: Laceration to R palmar hand, r/o foreign body TECHNIQUE: COMPARISON: No exams were available for comparison FINDINGS: Three views were obtained. There is no evidence of acute fracture or dislocation. IMPRESSION: RADIATION DOSE DELIVERED: Total DLP
--- NOTE | 2022-02-16 12:27 | ED.GENADUL_ITS ---
Discharge Plan Disposition Patient Disposition: HOME Condition: Stable Discharge Details Clinical Impression: Laceration of right hand Primary Care Provider: Jose Astorga ED Provider: Komal Carbajal Home Meds and New Rx's Prescriptions: New cephalexin 500 mg capsule 500 mg PO TID 5 Days Qty: 15 0RF Continued methylphenidate HCl [Concerta] 18 mg tablet extended release 24hr 18 mg PO DAILY 0RF Label Comments: has not taken in a while omeprazole 20 mg capsule,delayed release(DR/EC) 20 mg PO DAILY PRN0RF naproxen 250 mg tablet 250 - 500 mg PO BID PRN (Reason: Moderate pain or swelling) Qty: 60 0RF acetaminophen [Tylenol] 325 mg Tablet 650 mg PO Q6H PRN PRNQty: 0 0RF Discharge Instructions Instructions: Laceration (ED) Additional Instructions: Keep wound clean and dry. Cover wound with bandage if risk of contamination. Otherwise you can keep the wound open to air if resting at home to allow edges to dry and heal. Take the antibiotics as directed until finished. Return to the emergency department in 7 days for suture removal. Return immediately to the emergency department if you develop any worsening or new concerning symptoms. Discharge Data Discharge Date/Time-TO BE ENTERED AT DEPARTURE: 02/16/22 13:51 Discharge Physician: Komal Carbajal Medical Decision Making 31-year-old male presents with right hand laceration sustained on a sharp object and a piece of garbage prior to arrival. 2 cm straight laceration noted on the volar surface of the right hand overlying the fourth MCP joint. Bleeding controlled. No obvious foreign body or deformity noted. Neurovascularly intact. Patient referred for x-ray which was negative for foreign body. Area irrigated and soaked, anesthetized and closed with 4 nylon 5-0 sutures. Patient placed on prophylactic antibiotics. Advised to return to ED in 7 days for suture removal. Usual and customary return precautions given prior to discharge. Medical Records Medical records reviewed: Yes I reviewed the patient's medical records. Imaging Data Radiologic Study: Radiologist's impression: XR Right Hand Exam date and time: 02/16/2022 12:40 PM Age: 31 years old Clinical indication: Injury or trauma; Right; Injury date: 02/16/22; Injury details: Hand vs trash compactor debris, palmar laceration near base of 5th metacarpal TECHNIQUE: Imaging protocol: XR Right hand. Views: 3 or more views. COMPARISON: MR UPPER EXTREMITIES^ADULT 08/28/2020 9:49 AM FINDINGS: Bones/joints: The bony mineralization is within normal limits. There is no acute fracture or dislocation. Joint spaces appear preserved. Soft tissues: There is mild soft tissue swelling. No radiopaque foreign object identified. IMPRESSION: No acute fracture HPI General Mode of arrival: ambulatory . Date/Time Provider Initiated Documentation: 02/16/22 12:09 . Limitations to Documentation: no limitations . Information obtained by: patient . HPI Narrative: Patient is a 31-year-old male who presents with right hand laceration sustained while throwing a bag of garbage in the trash prior to arrival. Patient states it was his own garbage and there were aluminum cans and glass in there but he is unsure what he cut his hand on. He states he is unsure of his tetanus status. He states he is unsure of any possible foreign body. Related Data Home Medications Medication Instructions Recorded Confirmed omeprazole 20 mg capsule,delayed 20 mg PO DAILY PRN 11/21/20 02/16/22 release naproxen 250 mg tablet 250 - 500 mg PO BID PRN #60 tab 05/04/21 02/16/22 methylphenidate HCl 18 mg 18 mg PO DAILY 07/04/21 11/16/21 tablet,extended release 24 hr (Concerta) acetaminophen 325 mg tablet 650 mg PO Q6H PRN PRN #0 tab 09/09/21 02/16/22 (Tylenol) cephalexin 500 mg capsule 500 mg PO TID 5 Days #15 cap 02/16/22 Previous Rx's Medication Instructions Recorded naproxen 250 mg tablet 250 - 500 mg PO BID PRN #60 tab 05/04/21 acetaminophen 325 mg tablet 650 mg PO Q6H PRN PRN #0 tab 09/09/21 (Tylenol) cephalexin 500 mg capsule 500 mg PO TID 5 Days #15 cap 02/16/22 Allergies Allergy/AdvReac Type Severity Reaction Status Date / Time erythromycin base Allergy Verified 11/16/21 10:01 Sulfa (Sulfonamide AdvReac Intermediate Hives Unverified 11/16/21 10:01 Antibiotics) tape Allergy Severe Skin Rash Uncoded 11/16/21 10:01 General Stated Complaint: Laceration MICHAEL: 4 Review of Systems All systems reviewed & are unremarkable except as noted in HPI and below Constitutional Constitutional: Denies chills, Denies excessive sweating, Denies fatigue, Denies fever(s), Denies weakness and Denies weight loss Eyes Eyes: Reports system reviewed and no additional complaints, except as documented and Denies blurry vision ENT Ears, Nose, Mouth, and Throat: Denies vertigo, Denies dizziness, Denies otalgia, Denies nasal congestion, Denies sore throat and Denies throat swelling Cardiovascular Cardiovascular: Denies chest pain, Denies syncope, Denies rapid heart rate and Denies dyspnea Respiratory Respiratory: Denies chest congestion, Denies cough, Denies pain on inspiration and Denies dyspnea Gastrointestinal Gastrointestinal: Denies abdominal pain, Denies diarrhea and Denies vomiting Genitourinary Genitourinary: Denies hematuria, Denies dysuria and Denies flank pain Musculoskeletal Musculoskeletal: Denies back pain and Denies joint swelling Integumentary/Breasts Skin/Breast: Denies lesions and Denies rash Neurologic Neurologic: Denies behavioral changes, Denies confusion, Denies vertigo, Denies dizziness, Denies syncope, Denies localized weakness and Denies weakness Psychiatric Psychiatric: Denies behavioral changes, Denies confusion and Denies depression Endocrine Endocrine: Denies excessive sweating and Denies fatigue Hematologic/Lymphatic Hematologic/Lymphatic: Denies easy bruising and Denies lymphadenopathy Allergic/Immunologic Allergic/Immunologic: Denies throat swelling PFSH All Active Problems (Updated 02/16/22 @ 13:16 by Komal Carbajal DO) Laceration of right hand (Acute) Acute shoulder pain due to trauma (Acute) Acute tonsillitis (Acute) Tendinitis of long head of biceps brachii of right shoulder (Acute) Impingement syndrome of right shoulder (Acute) Bursitis of right shoulder (Acute) Pain in right acromioclavicular joint (Acute) Tendinitis of long head of biceps brachii of both shoulders (Acute) Chronic thoracic back pain (Acute) Cervicalgia (Acute) Cervical radiculopathy (Acute) Medical History ADHD Aspergers' syndrome Asthma Dysphonia GERD (gastroesophageal reflux disease) Scoliosis Sleep apnea Surgical History History of appendectomy History of spinal fusion Social History Smoking/Tobacco Use Status: Never Smoking risk assessment performed?: Yes Alcohol Intake: current Alcohol Intake frequency: holidays/special occasions only Drug use: Rarely Substance use type: marijuana and other Details: CBD Household members: none Housing: apartment Pets and animals: Yes Pets and animals: dog(s) Current gender identity: male What type of physical activity do you participate in: walking Seatbelt use: always Do you feel safe at home: Yes Do you feel safe in your relationship?: Yes Exam Const General: cooperative and healthy appearing Orientation: alert, awake and oriented x3 HENMT Head: normal to inspection Ears: hearing grossly normal bilaterally and external ears normal Eyes General: appearance normal, both eyes and all related structures Eyelids: eyelids normal Pupils: PERRL EOM: EOM intact bilaterally Neck Neck: normal visual inspection Lymphatic: no lymphadenopathy noted Resp Effort & Inspection: normal respiratory effort and able to speak in complete sentences Cardio Rate: regular rate Back/Spine/Pelvis Back: no CVA tenderness Skin General skin exam: no rashes or lesions noted Neuro General: patient alert and patient awake Cognition: normal cognition Speech: speech normal Gait: normal gait Motor: muscle tone normal throughout Sensory Exam: no sensory deficits noted Extrem Hand/finger images: 1. 2 cm x 2 cm linear laceration noted on palmar surface of right hand overlying fourth MCP joint. Bleeding controlled. No obvious foreign body. No surrounding edema, erythema, ecchymosis or crepitus. Psych Appearance: grossly normal Mental Status: mental status grossly normal Speech and Movement: speech and movement normal Affect: normal affect Thought Process: normal Course Vital Signs Vital signs: Vital Signs Temperature 98.2 F 02/16/22 11:53 Pulse 80 02/16/22 11:53 Respiratory Rate 16 02/16/22 11:53 Blood Pressure 139/78 02/16/22 11:53 Pulse Oximetry 97 02/16/22 11:53 Temperature 98.2 F 02/16/22 11:53 Temperature Source Skin 02/16/22 11:53 Pulse 80 02/16/22 11:53 Respiratory Rate 16 02/16/22 11:53 Respiratory Effort 02/16/22 11:57 Blood Pressure 139/78 04/23/22 11:53 Blood Pressure Position Sitting 02/16/22 11:53 Pulse Oximetry 97 02/16/22 11:53 Oxygen Delivery Method Room Air 02/16/22 11:53 Oxygen Flow Rate 0 02/16/22 11:53 Pain Level 5 02/16/22 11:53
--- NOTE | 2022-02-16 13:16 | DI.VRAD_ITS ---
PROCEDURE INFORMATION: Exam: XR Right Hand Exam date and time: 02/16/2022 12:40 PM Age: 31 years old Clinical indication: Injury or trauma; Right; Injury date: 02/16/22; Injury details: Hand vs trash compactor debris, palmar laceration near base of 5th metacarpal TECHNIQUE: Imaging protocol: XR Right hand. Views: 3 or more views. COMPARISON: MR UPPER EXTREMITIES^ADULT 08/28/2020 9:49 AM FINDINGS: Bones/joints: The bony mineralization is within normal limits. There is no acute fracture or dislocation. Joint spaces appear preserved. Soft tissues: There is mild soft tissue swelling. No radiopaque foreign object identified. IMPRESSION: No acute fracture Dictated and Authenticated by: Kelly Hopper MD. Ordering:MANUEL Sauceda MD
[2022-02-16] MEDS: Cephalexin 500 MG CAP PO ×2 (13:29)
== END 2022-02-16 13:51 | disposition home or self-care (01) ==
PROVIDERS: Emergency Provider Physician Assistant; PCP Family Medicine
DX: S61.411A Laceration without foreign body of right hand, initial encounter (principal); W26.8XXA Contact with other sharp object(s), not elsewhere classified, initial encounter
CPT/HCPCS: 12001; 90471; 73130

== ENCOUNTER 2022-10-23 19:01 | Emergency (ER) | payer MEDICARE, MEDICAID, SELFPAY ==
[2022-10-23 19:26] VITALS: BP 119/89; PULSE 89; RESP 16; TEMP 37; O2SAT 97
--- NOTE | 2022-10-23 21:00 | DI.CT_ITS ---
Exam(s) CT NECK W EXAM: CT NECK W INDICATION: right neck pain, difficulty swallowing. COMPARISON: CT CT NECK W from 09/09/2021 TECHNIQUE: FINDINGS: NASOPHARYNX: x OROPHARYNX: Both range all tonsils are prominent but without evidence of obvious abscess therein. Uv kermit is not swollen. Airway not obstructed. No significant swelling of the retropharyngeal space. HYPOPHARYNX: Unremarkable. Valleculae and epiglottis and aryepiglottic folds appear normal. VOCAL CORDS: Unremarkable. No masses evident. Subglottic airway appears unremarkable. THYROID GLAND: Unremarkable. Normal size and no obvious nodules. SALIVARY GLANDS: Unremarkable. No significant findings in the parotid and submandibular glands. LYMPH NODES: There is no gross adenopathy evident in the neck and supraclavicular regions. OTHER: Visualized paranasal sinuses are clear. VISUALIZED LUNG APICES: No significant findings. IMPRESSION: 1. Both pharyngeal tonsils are prominent in size but do not exhibits abscesses therein. 2. There is no gross lymphadenopathy in the neck. 3. No other significant incidental findings. First read by [facility]. RADIATION DOSE DELIVERED: 334.89mGy.cm Total DLP 334.89mGy.cm Total DLP DATA REPOSITORY: All CT scans at this facility are submitted to the National Radiology Data Registry (NRDR) Dose Index Registry (DIR) with the [employer] ([employer]). RADIATION OPTIMIZATION: All CT scans at this facility use at least one of these dose optimization te chniques: automated exposure control; mA and/or kV adjustment per patient size (includes targeted exa ms where dose is matched to clinical indication); or iterative reconstruction.
--- NOTE | 2022-10-23 21:26 | W.ED.GENAD ---
Discharge Plan Disposition Patient Disposition: Home Condition: Stable Discharge Details Clinical Impression: Pharyngitis Primary Care Provider: Jose Astorga ED Provider: Baljit Christina Home Meds and New Rx's Prescriptions: Continued omeprazole 20 mg capsule,delayed release(DR/EC) 20 mg PO DAILY PRN naproxen 250 mg tablet 250 - 500 mg PO BID PRN (Reason: Moderate pain or swelling) Qty: 60 0RF acetaminophen [Tylenol] 325 mg Tablet 650 mg PO Q6H PRN PRNQty: 0 0RF budesonide-formoterol [Symbicort] 80-4.5 mcg/actuation HFA aerosol inhaler 2 inh INHALATION PRN PRN Label Comments: INHALE 2 PUFFS BY MOUTH TWICE DAILY Discharge Instructions Instructions: Pharyngitis (ED) Additional Instructions: Please contact your primary care physician to arrange follow-up. Return to the ER immediately for any worsening or new concerning symptoms. Referrals: Randall Bailey MD [ [facility] STAFF PHYSICIAN] - Medical Decision Making [id number] -- 32-year-old male here with neck pain and difficulty swallowing over the past 2 weeks. Pain worse on the right with some associated right ear pain. Patient does have mild erythema of posterior oropharynx with no appreciable swelling or peritonsillar mass. He does have a history of peritonsillar abscess in the remote past. Consider deep space infection. Plan to obtain CT of the neck to assess for infection and acute surgical process. Of note, daughter is sick with COVID. Rapid antigen testing is negative. I will send COVID PCR testing. 1055 --CT of the neck was interpreted by radiology: The tonsils appear mildly prominent in volume for age bilaterally, no focal fluid collections. Similar findings in the adenoids right greater than left. Normal epiglottis. Suspect mild oropharyngitis with no abscess. I will give Decadron 10 mg p.o. Plan for discharge with supportive care. Usual customary discharge instructions reviewed with the patient. Patient was encouraged to follow-up with ENT. HPI General Mode of arrival: ambulatory. Date/Time Provider Initiated Documentation: 10/23/22 20:14. Limitations to Documentation: no limitations. Information obtained by: patient. HPI Narrative: 32-year-old male presents with chief complaint of sore throat. Patient notes sore throat and difficulty swallowing for the past 2 weeks. Symptoms are persistent, moderate with no modifiers. No associated fever. Patient notes remote history of peritonsillar abscess and there was plan for tonsillectomy that he did not pursue. Related Data Home Medications Medication Instructions Recorded Confirmed omeprazole 20 mg capsule,delayed 20 mg PO DAILY PRN 11/21/20 10/23/22 release naproxen 250 mg tablet 250 - 500 mg PO BID PRN Moderate 05/04/21 10/23/22 pain or swelling #60 tabs acetaminophen 325 mg tablet 650 mg PO Q6H PRN PRN #0 tabs 09/09/21 10/23/22 (Tylenol) budesonide-formoterol HFA 80 2 inh inhalation PRN PRN 10/23/22 10/23/22 mcg-4.5 mcg/actuation aerosol inhaler (Symbicort) Previous Rx's Medication Instructions Recorded naproxen 250 mg tablet 250 - 500 mg PO BID PRN Moderate 05/04/21 pain or swelling #60 tabs acetaminophen 325 mg tablet 650 mg PO Q6H PRN PRN #0 tabs 09/09/21 (Tylenol) Allergies Allergy/AdvReac Type Severity Reaction Status Date / Time erythromycin base Allergy Verified 10/23/22 19:33 Sulfa (Sulfonamide AdvReac Intermediate Hives Unverified 10/23/22 19:33 Antibiotics) tape Allergy Severe Skin Rash Uncoded 10/23/22 19:33 General Stated Complaint: Sorethroat MICHAEL: 4 Review of Systems All systems reviewed & are unremarkable except as noted in HPI and below Constitutional Constitutional: Denies fever(s) ENT Ears, Nose, Mouth, and Throat: Reports as per HPI PFSH All Active Problems (Updated 10/23/22 @ 22:57 by Baljit Christina MD) Pharyngitis (Acute) Acute shoulder pain due to trauma (Acute) Acute tonsillitis (Acute) Tendinitis of long head of biceps brachii of right shoulder (Acute) Impingement syndrome of right shoulder (Acute) Bursitis of right shoulder (Acute) Pain in right acromioclavicular joint (Acute) Tendinitis of long head of biceps brachii of both shoulders (Acute) Chronic thoracic back pain (Acute) Cervicalgia (Acute) Cervical radiculopathy (Acute) Medical History ADHD Aspergers' syndrome Asthma Dysphonia GERD (gastroesophageal reflux disease) Scoliosis Sleep apnea Surgical History History of appendectomy History of spinal fusion Social History Smoking/Tobacco Use Status: Never Smoking risk assessment performed?: Yes Alcohol Intake: current Alcohol Intake frequency: holidays/special occasions only Drug use: Rarely Substance use type: marijuana and other Details: CBD. Marijuana use a few puffs a day mostly at night to help me sleep. Household members: none Housing: apartment Pets and animals: Yes Pets and animals: dog(s) Current gender identity: male What type of physical activity do you participate in: walking Seatbelt use: always Do you feel safe at home: Yes Do you feel safe in your relationship?: Yes Exam Const General: cooperative and no acute distress HENMT Ears: external ears normal and TM's normal bilaterally Mouth: moist mucous membranes Throat: uvula midline, no peritonsillar masses and posterior oropharynx abnormal erythema; no cobblstoning, no edema and no exudates Eyes Conjunctivae: normal conjunctivae Sclera: normal sclerae Neck Neck: trachea midline and supple Resp Auscultation: clear to auscultation bilaterally, no rales, no rhonchi and no wheezes Cardio Rate: regular rate and not tachycardic Rhythm: regular rhythm GI Palpation: soft, not firm, no guarding, no masses, not rigid and nontender Skin General skin exam: no rashes or lesions noted Neuro General: patient alert, patient awake and tone normal Extrem General: no edema Psych Appearance: grossly normal Mental Status: mental status grossly normal Course Vital Signs Vital signs: Vital Signs Temperature 37.0 C 10/23/22 19:26 Pulse 89 10/23/22 19:26 Respiratory Rate 16 10/23/22 19:26 Blood Pressure 119/89 10/23/22 19:26 Pulse Oximetry 97 10/23/22 19:26 Temperature 37.0 C 10/23/22 19:26 Temperature Source Oral 10/23/22 19:26 Pulse 89 10/23/22 19:26 Respiratory Rate 16 10/23/22 19:26 Respiratory Effort Non-Labored 10/23/22 19:34 Blood Pressure 119/89 10/23/22 19:26 Blood Pressure Position Sitting 10/23/22 19:26 Pulse Oximetry 97 10/23/22 19:26 Oxygen Delivery Method Room Air 10/23/22 19:26 Oxygen Flow Rate 0 10/23/22 19:26 Pain Level 1 10/23/22 19:26
[2022-10-23] MEDS: Normal Saline - Diluent 50 ML VIAL IJ (21:34)
[2022-10-23] MEDS: Omnipaque 350 MG/ML 100 ML BTL IJ (21:34)
[2022-10-23 21:36] LABS: Abs Immature Grans 0.03 10^3/uL (0.0-0.06); Absolute Basophil Count 0.08 10^3/uL (0.0-0.2); Absolute Eosinophil Count 0.13 10^3/uL (0.0-0.7); Absolute Lymphocyte Count 2.42 10^3/uL (1.2-3.4); Absolute Monocyte Count 0.65 10^3/uL (0.1-0.8); Absolute Neutrophil Count 3.92 10^3/uL (1.2-6.7); Basophils % 1.1; Eosinophils % 1.8; HCT 45.6 % (40.0-50.0); HGB 15.4 g/dL (13.5-17.5); Immature Grans % 0.4; Lymphocytes % 33.5; MCH 27.9 pg (27.0-33.0); MCHC 33.8 % (32.0-36.0); MCV 83 fL (80-95); MPV 9.7 fL (8.0-11.0); Neutrophils % 54.2; Platelet Count 329 10^3/uL (130-400); RBC 5.51 10^6/uL (4.36-5.78); RDW-SD 36.7 fL; WBC 7.23 10^3/uL (4.4-10.8)
[2022-10-23 21:46] LABS: Anion Gap 6.7 mmol/L (3-11); BUN 18 mg/dL (7-18); CO2 30.3 mmol/L (21.0-32.0); CREATININE 1.2 mg/dL (0.70-1.30); Calcium 8.8 mg/dL (8.5-10.1); Chloride 105 mmol/L (98-107); Estimated GFR 82.92 (mL/min/1.73m2); Glucose 111 mg/dL (74-106); Potassium 3.8 mmol/L (3.5-5.1); Sodium 142 mmol/L (136-145)
--- NOTE | 2022-10-23 22:13 | DI.VRAD_ITS ---
PROCEDURE INFORMATION: Exam: CT Neck With Contrast Exam date and time: 10/23/2022 21:34 Age: 32 years old Clinical indication: Other: Right neck pain, difficulty swallowing TECHNIQUE: Imaging protocol: Computed tomography of the neck with contrast. Contrast material: 350; Contrast volume: 100 ml; Contrast route: INTRAVENOUS (IV); COMPARISON: CT NECK W 09/09/2021 02:51 FINDINGS: Pharynx: The tonsils appear mildly prominent in volume for age bilaterally ; no focal fluid collections. Similar finding in the adenoids right greater than left. Larynx: Normal epiglottis. Prevertebral and retropharyngeal spaces: Unremarkable. Salivary glands: Normal. Glands are normal in size. Thyroid: No enlarged or calcified nodules. Lymph nodes: No lymphadenopathy. Trachea: Visualized trachea is unremarkable. Lungs: Unremarkable as visualized. Bones/joints: Thoracic spinal fixation hardware is partially seen. Soft tissues: No significant soft tissue swelling. IMPRESSION: Suspected mild oropharyngitis with no abscess. Dictated and Authenticated by: Gina Estrada MD. Ordering:RITO Smiley MD
[2022-10-23] MEDS: Dexamethasone 10 MG/ML VIAL PO (23:25)
[2022-10-25 11:45] LABS: COVID-19 RT-PCR UVMMC Result Negative (Negative)
== END 2022-10-23 23:36 | disposition home or self-care (01) ==
PROVIDERS: Emergency Provider Student in an Organized Health Care Education/Training Program; PCP Family Medicine
DX: J02.9 Acute pharyngitis, unspecified (principal); H92.01 Otalgia, right ear; J45.909 Unspecified asthma, uncomplicated; Z79.51 Long term (current) use of inhaled steroids; Z20.822 Contact with and (suspected) exposure to COVID-19
CPT/HCPCS: 70491; 80048; 87880; 99285; U0003; 85025; 87081; 99284; J1100; J3490

== ENCOUNTER 2022-12-24 13:32 | Emergency (ER) | payer MEDICARE, MEDICAID, SELFPAY ==
[2022-12-24 13:39] VITALS: BP 124/79; PULSE 89; RESP 14; TEMP 36.7; O2SAT 98
[2022-12-24 13:45] VITALS: RESP 14
--- NOTE | 2022-12-24 14:02 | W.ED.GENAD ---
Discharge Plan Disposition Patient Disposition: Home Condition: Good Discharge Details Clinical Impression: Viral illness Primary Care Provider: Jose Astorga ED Provider: Judy Cavazos Home Meds and New Rx's Prescriptions: Continued omeprazole 20 mg capsule,delayed release(DR/EC) 20 mg PO DAILY PRN naproxen 250 mg tablet 250 - 500 mg PO BID PRN (Reason: Moderate pain or swelling) Qty: 60 0RF acetaminophen [Tylenol] 325 mg Tablet 650 mg PO Q6H PRN PRNQty: 0 0RF budesonide-formoterol [Symbicort] 80-4.5 mcg/actuation HFA aerosol inhaler 2 inh INHALATION PRN PRN Patient Comments: INHALE 2 PUFFS BY MOUTH TWICE DAILY Discharge Instructions Instructions: Viral Syndrome (ED) Additional Instructions: Your exam is reassuring here today. Your lungs are clear, I do not see evidence of bacterial infection at this time. We have sent out testing for COVID, flu and RSV. These test are pending but I will call you with the results this afternoon. Please encourage supportive care including hydration, Tylenol and ibuprofen as needed for discomfort, honey for sore throat and cough. Please follow-up with primary care in 2 weeks for reevaluation. Please continue to wash her hands frequently and try to keep her daughter healthy as possible. If you develop any difficulty breathing, increased shortness of breath, chest pain or other new/worsening symptom please seek care urgently once again. Referrals: Jose Astorga MD [Primary Care Provider] - Medical Decision Making Patient is a pleasant 32-year-old male presenting today with chief complaint of flulike illness. States that 4 days ago he began having cough, diarrhea, body aches, general malaise and fatigue. States that initially started with runny nose and has progressed since then. He denies any known fevers. Denies any shortness of breath or chest pain. Has not had significant sputum production. Has no significant past medical history. His primary concern is that he has a daughter at home and is worried about spreading this to her. He reports that he is up-to-date on immunizations. On exam, appears nontoxic. He appears well-hydrated. He is hemodynamically stable. His lungs are clear, normal cardiac exam. Normal HEENT exam aside for some mild erythema in the posterior oropharynx. Advised patient that his symptoms are most consistent with viral illness. We will perform antigen testing here. Encourage hydration and supportive care. Advised that if his daughter becomes ill they should follow-up with customer service supervisor. We did discuss supportive care and encouraged hygiene to help prevent transmission of the illness to anybody else. Strict return precautions were discussed. He will follow-up with primary care in 2 weeks for reevaluation. All questions and concerns were addressed and he is in agreement this plan. Negative for COVID, flu, RSV. Called the patient and let him know about the results. HPI General Date/Time Provider Initiated Documentation: 12/24/22 14:01. Limitations to Documentation: no limitations. Information obtained by: patient and RN notes reviewed. History of Present Illness 32 year old M presents to the emergency department with the chief complaint of flu like symptoms, described as mild, with intensity rated at 2. Quality is described as aching, Patient reports radiation to (body aches). Patient started experiencing this day(s) (4) and it has been constant. No relieving factors improve symptom(s), No exacerbating factors reported . Patient notes cough, malaise and nausea/vomiting (nausea, no vomiting); denies chest pain, fever/chills, headaches, rash and shortness of breath. Patient did receive the following treatments prior to arrival, none Related Data Home Medications Medication Instructions Recorded Confirmed omeprazole 20 mg capsule,delayed 20 mg PO DAILY PRN 11/21/20 12/24/22 release naproxen 250 mg tablet 250 - 500 mg PO BID PRN Moderate 05/04/21 12/24/22 pain or swelling #60 tabs acetaminophen 325 mg tablet 650 mg PO Q6H PRN PRN #0 tabs 09/09/21 12/24/22 (Tylenol) budesonide-formoterol HFA 80 2 inh inhalation PRN PRN 10/23/22 12/24/22 mcg-4.5 mcg/actuation aerosol inhaler (Symbicort) Previous Rx's Medication Instructions Recorded naproxen 250 mg tablet 250 - 500 mg PO BID PRN Moderate 05/04/21 pain or swelling #60 tabs acetaminophen 325 mg tablet 650 mg PO Q6H PRN PRN #0 tabs 09/09/21 (Tylenol) Allergies Allergy/AdvReac Type Severity Reaction Status Date / Time erythromycin base Allergy Verified 12/24/22 13:53 Sulfa (Sulfonamide AdvReac Intermediate Hives Unverified 12/24/22 13:53 Antibiotics) tape Allergy Severe Skin Rash Uncoded 12/24/22 13:53 General Stated Complaint: GenMedical MICHAEL: 3 Review of Systems Constitutional Constitutional: Reports as per HPI and Denies headache(s) Eyes Eyes: Reports as per HPI and Denies eye discharge ENT Ears, Nose, Mouth, and Throat: Reports as per HPI and Denies headache(s) Cardiovascular Cardiovascular: Reports as per HPI, Denies chest pain and Denies dyspnea Respiratory Respiratory: Reports as per HPI and Denies dyspnea Gastrointestinal Gastrointestinal: Reports as per HPI, Denies abdominal pain, Reports nausea and Denies vomiting Integumentary/Breasts Skin/Breast: Reports as per HPI and Denies rash Neurologic Neurologic: Reports as per HPI and Denies headache(s) PFSH All Active Problems (Updated 12/24/22 @ 14:17 by SHERIDAN Rojas) Viral illness (Acute) Acute shoulder pain due to trauma (Acute) Acute tonsillitis (Acute) Tendinitis of long head of biceps brachii of right shoulder (Acute) Impingement syndrome of right shoulder (Acute) Bursitis of right shoulder (Acute) Pain in right acromioclavicular joint (Acute) Tendinitis of long head of biceps brachii of both shoulders (Acute) Chronic thoracic back pain (Acute) Cervicalgia (Acute) Cervical radiculopathy (Acute) Medical History ADHD Aspergers' syndrome Asthma Dysphonia GERD (gastroesophageal reflux disease) Scoliosis Sleep apnea Surgical History History of appendectomy History of spinal fusion Social History Smoking/Tobacco Use Status: Never Smoking risk assessment performed?: Yes Alcohol Intake: current Alcohol Intake frequency: holidays/special occasions only Drug use: Rarely Substance use type: marijuana and other Details: CBD. Marijuana use a few puffs a day mostly at night to help me sleep. Household members: none Housing: apartment Pets and animals: Yes Pets and animals: dog(s) Current gender identity: male What type of physical activity do you participate in: walking Seatbelt use: always Do you feel safe at home: Yes Do you feel safe in your relationship?: Yes Exam Const General: cooperative, healthy appearing, comfortable, no acute distress, well developed and well groomed Nutritional Appearance: average body habitus and well nourished Orientation: alert and awake [facility] Head: normal to inspection, normocephalic and atraumatic Ears: hearing grossly normal bilaterally, external ears normal and TM's normal bilaterally General nose exam: external nose normal and nares normal Face and sinus: normal facial exam, sinuses nontender and face symmetric Mouth: oral mucosae normal, lip normal, tongue normal, oropharynx normal and moist mucous membranes Teeth and gingiva: dentition normal Throat: posterior oropharynx normal, tonsils normal and uvula midline Eyes General: appearance normal, both eyes and all related structures Neck Neck: normal visual inspection, full ROM and no lymphadenopathy Resp Effort & Inspection: normal respiratory effort, able to speak in complete sentences and no respiratory distress Auscultation: clear to auscultation bilaterally, no rales, no rhonchi and no wheezes Cardio Rate: regular rate Rhythm: regular rhythm Heart Sounds: S1 normal and S2 normal Skin General skin exam: no rashes or lesions noted Neuro General: patient alert and patient awake Cognition: normal cognition Speech: speech normal Gait: normal gait Psych Appearance: grossly normal and well kempt Mental Status: mental status grossly normal Speech and Movement: speech and movement normal Course Vital Signs Vital signs: Vital Signs Temperature 36.7 C 12/24/22 13:39 Pulse 89 12/24/22 13:39 Respiratory Rate 14 12/24/22 13:39 Blood Pressure 124/79 12/24/22 13:39 Pulse Oximetry 98 12/24/22 13:39 Temperature 36.7 C 12/24/22 13:39 Temperature Source Oral 12/24/22 13:39 Pulse 89 12/24/22 13:39 Respiratory Rate 14 12/24/22 13:45 Respiratory Effort Normal, Non-Labored 12/24/22 13:45 Respiratory Depth Normal 12/24/22 13:45 Respiratory Pattern Normal 12/24/22 13:45 Blood Pressure 124/79 12/24/22 13:39 Blood Pressure Position Sitting 12/24/22 13:39 Pulse Oximetry 98 12/24/22 13:39 Oxygen Delivery Method Room Air 12/24/22 13:39 Oxygen Flow Rate 0 12/24/22 13:39 Pain Level 2 12/24/22 13:39 Comment body aches 12/24/22 13:39
[2022-12-24 14:25] VITALS: RESP 14
[2022-12-24 16:04] LABS: COVID-19 PCR Negative (Negative); Influenza A PCR Negative (Negative); Influenza B PCR Negative (Negative); RSV PCR Negative (Negative)
[2022-12-24 16:10] LABS: Source Nasopharynx
== END 2022-12-24 14:26 | disposition home or self-care (01) ==
PROVIDERS: Emergency Provider Physician Assistant; PCP Family Medicine
DX: B34.9 Viral infection, unspecified (principal); R53.81 Other malaise; R19.7 Diarrhea, unspecified
CPT/HCPCS: 87637; 99281; 99283

== ENCOUNTER 2023-02-24 13:06 | Emergency (ER) | payer MEDICARE, MEDICAID, SELFPAY ==
[2023-02-24 13:13] VITALS: BP 121/73; PULSE 80; RESP 18; TEMP 36.8; O2SAT 99
[2023-02-24 15:27] VITALS: BP 131/89; PULSE 77; RESP 18; O2SAT 100
--- NOTE | 2023-02-24 15:40 | ED.GENADUL_ITS ---
Discharge Plan Disposition Patient Disposition: Home Condition: Stable Discharge Details Chief Complaint: Nk/Back Pain Clinical Impression: Back pain Primary Care Provider: Jose Astorga ED Provider: Gavin Menendez Home Meds and New Rx's Prescriptions: No Action omeprazole 20 mg capsule,delayed release(DR/EC) 20 mg PO DAILY PRN naproxen 250 mg tablet 250 - 500 mg PO BID PRN (Reason: Moderate pain or swelling) Qty: 60 0RF acetaminophen [Tylenol] 325 mg Tablet 650 mg PO Q6H PRN PRNQty: 0 0RF budesonide-formoterol [Symbicort] 80-4.5 mcg/actuation HFA aerosol inhaler 2 inh INHALATION PRN PRN Patient Comments: INHALE 2 PUFFS BY MOUTH TWICE DAILY Discharge Instructions Instructions: Back Pain (ED) Additional Instructions: Please help with your primary care physician. Please return to the emergency department for any worsening symptoms Medical Decision Making 32-year-old male history of spinal fusion for scoliosis presents with right paraspinal lumbar back discomfort in the setting of lifting something yesterday. No midline spinal tenderness step-off or deformity. Afebrile nontoxic neurologically intact. No bowel or bladder dysfunction, no saddle paresthesia/anesthesia. Ambulatory no ataxia full strength in lower extremities. Point tenderness along paraspinal soft tissue right lumbar region. Likely muscle strain versus less likely radiculopathy low suspicion for hardware fracture or dislocation low suspicion for spinal cord compression. No evidence of infectious etiology. Screening plain films lumbar to assess hardware, trial of analgesia anti-inflammatory. Likely home with close follow- up. 16: 43 resting comfortably no acute distress. No evidence of hardware dislocation or fracture on x-ray. Patient will follow with primary care physician. If no improvement in the next week or any worsening symptoms patient was given return precautions to consider MRI HPI General Date/Time Provider Initiated Documentation: 02/24/23 13:22 . HPI Narrative: 32-year-old male history of scoliosis status post spinal fusion at the age of 15 presents with lower back discomfort paraspinal in nature after lifting something yesterday. Denies bowel or bladder issues denies weakness or numbness in legs. Related Data Home Medications Medication Instructions Recorded Confirmed omeprazole 20 mg capsule,delayed 20 mg PO DAILY PRN 11/21/20 02/24/23 release naproxen 250 mg tablet 250 - 500 mg PO BID PRN Moderate 05/04/21 02/24/23 pain or swelling #60 tabs acetaminophen 325 mg tablet 650 mg PO Q6H PRN PRN #0 tabs 09/09/21 02/24/23 (Tylenol) budesonide-formoterol HFA 80 2 inh inhalation PRN PRN 10/23/22 02/24/23 mcg-4.5 mcg/actuation aerosol inhaler (Symbicort) Previous Rx's Medication Instructions Recorded naproxen 250 mg tablet 250 - 500 mg PO BID PRN Moderate 05/04/21 pain or swelling #60 tabs acetaminophen 325 mg tablet 650 mg PO Q6H PRN PRN #0 tabs 09/09/21 (Tylenol) Allergies Allergy/AdvReac Type Severity Reaction Status Date / Time erythromycin base Allergy Verified 12/24/22 13:53 Sulfa (Sulfonamide AdvReac Intermediate Hives Unverified 12/24/22 13:53 Antibiotics) tape Allergy Severe Skin Rash Uncoded 12/24/22 13:53 General Stated Complaint: Nk/Back Pain MICHAEL: 4 Review of Systems Narrative: Review of Systems Constitutional: negative Eyes: negative ENT: negative Cardiovascular: negative Respiratory: negative Gastrointestinal: negative : negative Musculoskeletal: Back pain Skin: negative Neurologic: negative Psych: negative PFSH All Active Problems (Updated 02/24/23 @ 16:44 by Gavin Menendez MD) Back pain (Acute) Acute shoulder pain due to trauma (Acute) Acute tonsillitis (Acute) Tendinitis of long head of biceps brachii of right shoulder (Acute) Impingement syndrome of right shoulder (Acute) Bursitis of right shoulder (Acute) Pain in right acromioclavicular joint (Acute) Tendinitis of long head of biceps brachii of both shoulders (Acute) Chronic thoracic back pain (Acute) Cervicalgia (Acute) Cervical radiculopathy (Acute) Medical History ADHD Aspergers' syndrome Asthma Dysphonia GERD (gastroesophageal reflux disease) Scoliosis Sleep apnea Surgical History History of appendectomy History of spinal fusion Social History Smoking/Tobacco Use Status: Never Smoking risk assessment performed?: Yes Alcohol Intake: current Alcohol Intake frequency: holidays/special occasions only Drug use: Rarely Substance use type: marijuana and other Details: CBD. Marijuana use a few puffs a day mostly at night to help me sleep. Household members: none Housing: apartment Pets and animals: Yes Pets and animals: dog(s) Current gender identity: male What type of physical activity do you participate in: walking Seatbelt use: always Do you feel safe at home: Yes Do you feel safe in your relationship?: Yes Exam Narrative Exam Narrative: Physical Examination General: alert, awake, cooperative, resting comfortably, no acute distress HEENT: normocephalic, atraumatic; PERRL, EOM intact, conjunctiva normal; no sade al discharge; moist mucous membranes, oral and pharyngeal mucosa normal, tolerating secretions Neck: supple, trachea midline; full ROM Chest: normal to inspection Back: Well-healed midline surgical scar, no midline spinal tenderness step-off deformity or crepitus, point tenderness paraspinal right side lumbar soft tissue Skin: no lesions, rashes or trauma appreciated Neuro: AAOx3, normal speech, moving all extremities; ambulatory without assistance no ataxia 5 out of 5 strength in extremities Extremities: Moving all extremities no evidence of trauma Psych: Appropriate mood and affect Course Vital Signs Vital signs: Vital Signs Temperature 36.8 C 02/24/23 13:13 Pulse 80 02/24/23 13:13 Respiratory Rate 18 02/24/23 13:13 Blood Pressure 121/73 02/24/23 13:13 Pulse Oximetry 99 02/24/23 13:13 Temperature 36.8 C 02/24/23 13:13 Temperature Source Temporal Artery Scan 02/24/23 13:13 Pulse 77 02/24/23 15:27 Respiratory Rate 18 02/24/23 15:27 Respiratory Effort Normal, Non-Labored 02/24/23 13:18 Blood Pressure 131/89 02/24/23 15:27 Blood Pressure Position Sitting 02/24/23 13:13 Pulse Oximetry 100 02/24/23 15:27 Oxygen Delivery Method Room Air 02/24/23 15:27 Oxygen Flow Rate 0 02/24/23 15:27
[2023-02-24] MEDS: Dexamethasone 10 MG/ML VIAL PO (15:47)
[2023-02-24] MEDS: Ketorolac 15 MG/ML VIAL IM (15:48)
[2023-02-24] MEDS: Lidocaine 5% Patch 1 PATCH TP (16:01)
--- NOTE | 2023-02-24 16:11 | DI.RAD_ITS ---
Exam(s) XR LUMBAR SPINE AP, LAT EXAM: XR LUMBAR SPINE AP, LAT CLINICAL HISTORY: hx of spinal fusion, back pain. TECHNIQUE: 2D digital imaging was performed of the lumbar spine. Three images were obtained. AP, l ateral and L5-S1 spot views were obtained. COMPARISON: CR XR lumbar spine complete from 11/24/2018 FINDINGS: BONES: No fracture or destructive lesion. Minimal spurring is seen at the endplates of lumbar spine v ertebra. No facet hypertrophy identified. The distal aspects of posterior spinal rods are seen in th e lower thoracic and upper lumbar spine. The orthopedic hardware appears intact. DISKS: Intervertebral disc spaces are maintained. ALIGNMENT: Lumbar spinal alignment is within normal limits. No spondylolysis or spondylolisthesis. SOFT TISSUE: Normal. IMPRESSION: 1. No acute abnormality. 2. Stable postsurgical changes in the lower thoracic and upper lumbar spine. DATA REPOSITORY: RADIATION DOSE DELIVERED:
== END 2023-02-24 16:48 | disposition home or self-care (01) ==
PROVIDERS: Emergency Provider Emergency Medicine; PCP Family Medicine
DX: M54.59 Other low back pain (principal)
CPT/HCPCS: 96372; 99284; 72100; J1100; J1885

== ENCOUNTER 2023-09-06 14:01 | Emergency (ER) | payer MEDICARE, MEDICAID, SELFPAY ==
[2023-09-06 14:03] VITALS: BP 139/69; PULSE 86; RESP 14; TEMP 36.7; O2SAT 97
--- NOTE | 2023-09-06 14:15 | W.ED.GENAD ---
Discharge Plan Disposition Patient Disposition: Home Condition: Good Discharge Details Clinical Impression: Pharyngitis Primary Care Provider: Jose Astorga ED Provider: Perla Dorsey Home Meds and New Rx's Prescriptions: New penicillin V potassium 500 mg tablet 500 mg PO QID 10 Days Qty: 40 0RF Rx Instructions: Take if your throat culture is positive. No Action omeprazole 20 mg capsule,delayed release(DR/EC) 20 mg PO DAILY PRN naproxen 250 mg tablet 250 - 500 mg PO BID PRN (Reason: Moderate pain or swelling) Qty: 60 0RF acetaminophen [Tylenol] 325 mg Tablet 650 mg PO Q6H PRN PRNQty: 0 0RF budesonide-formoterol [Symbicort] 80-4.5 mcg/actuation HFA aerosol inhaler 2 inh INHALATION PRN PRN Patient Comments: INHALE 2 PUFFS BY MOUTH TWICE DAILY Discharge Instructions Instructions: Pharyngitis (ED) Additional Instructions: 1. We will call you if the regular throat culture is positive. If so I will fill your prescription for penicillin 500 mg every 6 hours for 10 days. Take a probiotic while on antibiotics. 2. Alternate acetaminophen every 3 hours with ibuprofen as needed for pain. 3. You will be contacted by the ENT office with a follow-up appointment. Call your primary care provider for a follow-up appointment and recheck. 4. Return to the emergency department for any new or worrisome symptoms such as difficulty speaking swallowing or breathing or any new or worrisome concerns. Discharge Data Discharge Physician: Perla Dorsey Medical Decision Making This is a healthy 33-year-old male who presents with 3 weeks of sore throat worse on the right than on the left. He has been told 8 years ago by an mortgage closing clerk that he needed a tonsillectomy but never followed up. He presents today after 3 weeks because he has not had a day off until today. His exam is reassuring. There is no deviation of the uvula. No exudate. Minimal swelling without significant erythema. No swelling of the mouth or throat. No evidence of Freddy's angina. He denies any sick contacts. My plan is to obtain a rapid strep and a Monospot since he has had 3 weeks of pain. If his rapid strep is negative he will have an automatic regular 48 hours throat culture. I will likely discharge him with a prescription for penicillin to take if his culture is positive. If his Monospot is positive we will discharge him home with outpatient follow-up. I will likely have him follow-up with ENT as well as his primary care provider. I will also check a CBC for leukocytosis and left shift as well as monocytosis. We will hold a yellow top and send it if positive for Jake-Yeh virus Differential Diagnosis Differential Diagnosis: Strep throat, viral pharyngitis, Jake-Yeh virus Medical Records Medical records reviewed: Yes I reviewed the patient's medical records. Lab Data Lab results narrative: Monospot is negative HPI General Mode of arrival: ambulatory. Date/Time Provider Initiated Documentation: 09/06/23 14:12. Limitations to Documentation: no limitations. Information obtained by: patient. HPI Narrative: Time seen was 1400 in triage. The patient is a 33-year-old healthy male who was told that he needed to have his tonsils out 8 years ago by an mortgage closing clerk. He states he never followed up and it fell through the cracks. He presents today with 3 weeks of sore throat which is worse on the right than on the left. The pain is constant and 2 out of 10 in severity. It radiates slightly to his ears. He has taken acetaminophen with some relief. He denies any fever or rashes. The pain is aggravated by swallowing. No change in voice. No history of mono or Jake-Yeh virus. No history of sick contacts. He said he has not come in sooner because he has not had a day off. He denies any chest pain, abdominal pain, rhinorrhea or cough. He denies any history of immune compromise. He tells me that a few days ago he had food poisoning that lasted a few hours but does not have any abdominal pain currently. He says the pain is constant and radiates to the ears. It is worse with swallowing and worse in the morning and worse at night but has improved by drinking water. No URI symptoms. No shortness of breath. He tells me that he had bleeding from the right tonsil brushing his teeth a few days ago. He has had no further bleeding. No bruising no gum bleeding no epistaxis. Related Data Home Medications Medication Instructions Recorded Confirmed omeprazole 20 mg capsule,delayed 20 mg PO DAILY PRN 11/21/20 02/24/23 release naproxen 250 mg tablet 250 - 500 mg (1 - 2 x 250 mg) PO 05/04/21 02/24/23 BID PRN Moderate pain or swelling #60 tabs acetaminophen 325 mg tablet 650 mg (2 x 325 mg) PO Q6H PRN PRN 09/09/21 02/24/23 (Tylenol) #0 tabs budesonide-formoterol HFA 80 2 inh inhalation PRN PRN 10/23/22 02/24/23 mcg-4.5 mcg/actuation aerosol inhaler (Symbicort) penicillin V potassium 500 mg 500 mg PO QID 10 days #40 tabs 09/06/23 tablet Previous Rx's Medication Instructions Recorded naproxen 250 mg tablet 250 - 500 mg (1 - 2 x 250 mg) PO 05/04/21 BID PRN Moderate pain or swelling #60 tabs acetaminophen 325 mg tablet 650 mg (2 x 325 mg) PO Q6H PRN PRN 09/09/21 (Tylenol) #0 tabs penicillin V potassium 500 mg 500 mg PO QID 10 days #40 tabs 09/06/23 tablet Allergies Allergy/AdvReac Type Severity Reaction Status Date / Time erythromycin base Allergy Verified 09/06/23 14:59 Sulfa (Sulfonamide AdvReac Intermediate Hives Unverified 09/06/23 14:59 Antibiotics) tape Allergy Severe Skin Rash Uncoded 09/06/23 14:59 General Stated Complaint: Sorethroat MICHAEL: 4 Review of Systems Narrative: see hpi Respiratory Comments: The patient states he does have a history of asthma Gastrointestinal Comments: Recent food poisoning PFSH All Active Problems (Updated 09/06/23 @ 14:55 by Perla Dorsey MD) Pharyngitis (Acute) Acute shoulder pain due to trauma (Acute) Acute tonsillitis (Acute) Tendinitis of long head of biceps brachii of right shoulder (Acute) Impingement syndrome of right shoulder (Acute) Bursitis of right shoulder (Acute) Pain in right acromioclavicular joint (Acute) Tendinitis of long head of biceps brachii of both shoulders (Acute) Chronic thoracic back pain (Acute) Cervicalgia (Acute) Cervical radiculopathy (Acute) Medical History Scoliosis Aspergers' syndrome Dysphonia Sleep apnea Asthma GERD (gastroesophageal reflux disease) ADHD Surgical History History of appendectomy History of spinal fusion Social History Smoking/Tobacco Use Status: Never Smoking risk assessment performed?: Yes Alcohol Intake: current Alcohol Intake frequency: holidays/special occasions only Drug use: Rarely Substance use type: marijuana and other Details: CBD. Marijuana use a few puffs a day mostly at night to help me sleep. Household members: none Housing: apartment Pets and animals: Yes Pets and animals: dog(s) Current gender identity: male What type of physical activity do you participate in: walking Seatbelt use: always Do you feel safe at home: Yes Do you feel safe in your relationship?: Yes Exam Narrative Exam Narrative: The patient is a well-developed well-nourished male, holding his infant daughter, who is alert and oriented in no acute distress he has normal phonation. He is normotensive. He is not tachycardic tachypneic or febrile. He has a normal room air O2 sat of 97%. Const General: cooperative, healthy appearing, comfortable, no acute distress, well developed, well groomed and well hydrated Nutritional Appearance: average body habitus and well nourished Orientation: alert, awake and oriented x3 HENMT Head: normal to inspection, normocephalic and atraumatic Ears: hearing grossly normal bilaterally, external ears normal, TM's normal bilaterally and mastoids normal General nose exam: external nose normal, nares normal and no nasal discharge Face and sinus: normal facial exam, sinuses nontender and face symmetric Mouth: oral mucosae normal, lip normal, tongue normal, moist mucous membranes, normal lip, no muffled voice and other (The patient is handling secretions. No swelling beneath the tongue. \) Throat: posterior oropharynx normal, uvula midline, no peritonsillar masses, normal posterior oropharynx, no postnasal drainage, uvula not displaced and no uvular edema Other: His tonsils are almost symmetric the right is slightly larger than the left. His uvula is midline. There is no hyperemia exudate or significant hypertrophy. There is no cricoid tenderness. No evidence of buccal cellulitis. Eyes General: appearance normal, both eyes and all related structures Eyelids: eyelids normal Conjunctivae: conjunctivae normal Sclera: sclerae normal Cornea: corneas normal Pupils: PERRL EOM: EOM intact bilaterally and No nystagmus Neck Neck: normal visual inspection, full ROM, no lymphadenopathy, no meningeal signs, trachea midline, supple, no anterior neck swelling, no lymphadenopathy noted, no tracheal deviation, No JVD, no JVD and No submandibular swelling Lymphatic: no lymphadenopathy noted Other: No cricoid tenderness. No swelling. Chest Chest: normal inspection of the chest Resp Effort & Inspection: normal respiratory effort, able to speak in complete sentences, no audible wheezes, no nasal flaring, no respiratory distress, no retractions, no stridor, not tachypneic, no tracheal deviation, no use of accessory muscles, No prolonged expiratory phase and other (Normal inspiratory to expiratory ratio.) Auscultation: clear to auscultation bilaterally, no rales, no rhonchi, no wheezes and no rubs Tactile Fremitus: tactile fremitus absent Cardio Jugular venous pressure: no JVD Palpation: normal PMI Rate: regular rate Rhythm: regular rhythm Heart Sounds: S1 normal, S2 normal, no gallops, no murmurs and no rubs GI Inspection: normal to inspection and non-distended Palpation: soft, no hepatosplenomegaly, no guarding and nontender Percussion: normal to percussion Auscultation: normal bowel sounds General: No CVA tenderness Back/Spine/Pelvis Back: no CVA tenderness and No back tenderness Cervical Spine: normal cervical lordosis, cervical ROM normal, No cervical muscular tenderness, No pain with cervical ROM, No cervical spinal tenderness and No step off deformity Thoracic/Lumbar Spine: thoracic and lumbar spine normal to inspection Skin General skin exam: no rashes or lesions noted, turgor normal, no petechiae, no purpura and other (Skin is normal for ethnicity.) Lesions: no lesions Rashes: no rashes Trauma: no lacerations or abrasions Neuro General: patient alert, patient awake, patient oriented x3, moves all extremities, no meningeal signs, no focal motor deficits and CN's II-XI intact bilaterally Cranial Nerves: CN's II-XI intact bilaterally, PERRL, accommodation normal, EOM intact bilaterally, no nystagmus, facial strength normal, tongue midline, hearing normal and no nystagmus Cognition: normal cognition Speech: speech normal Gait: normal gait Motor: muscle tone normal throughout and strength 5/5 throughout Sensory Exam: no sensory deficits noted Extrem General: normal to inspection, full ROM, capillary refill normal, no clubbing, cyanosis or edema and no calf tenderness Psych Appearance: grossly normal Affect: normal affect Attitude: cooperative Thought Process: normal Thought Content: normal Insight: insight good Judgment: judgment good Other: The patient appears to have capacity make medical decisions. Course The patient declined any pain medications at triage. Reevaluation(s) Time: 14:51 Reevaluation: I have advised the patient to follow-up with otolaryngology and primary care. I have advised him to alternate acetaminophen every 3 hours with ibuprofen as needed for pain. I have advised him that I will write a prescription for penicillin to take if his regular culture is positive. I have advised him if he starts the penicillin to take a probiotic and to return for any difficulty breathing talking or swallowing or any new or worrisome concerns. The patient voiced understanding agree with the discharge plan. All his questions and concerns were addressed prior to discharge Vital Signs Vital signs: Vital Signs Temperature 36.7 C 09/06/23 14:03 Pulse 86 09/06/23 14:03 Respiratory Rate 14 09/06/23 14:03 Blood Pressure 139/69 09/06/23 14:03 Pulse Oximetry 97 09/06/23 14:03 Temperature 36.7 C 09/06/23 14:03 Temperature Source Temporal Artery Scan 09/06/23 14:03 Pulse 86 09/06/23 14:03 Respiratory Rate 14 09/06/23 14:03 Respiratory Effort Normal 09/06/23 14:08 Blood Pressure 139/69 09/06/23 14:03 Blood Pressure Position Sitting 09/06/23 14:03 Pulse Oximetry 97 09/06/23 14:03 Oxygen Delivery Method Room Air 09/06/23 14:03 Oxygen Flow Rate 0 09/06/23 14:03 Pain Level 2 09/06/23 14:03 Comment 7-[address] swallows[address] worse at night 09/06/23 14:03 Lab/Test Results Lab/Test Results: [facility] negative rapid strep negative regular throat culture pending
[2023-09-06 14:31] LABS: Abs Immature Grans 0.02 10^3/uL (0.0-0.06); Absolute Basophil Count 0.07 10^3/uL (0.0-0.2); Absolute Eosinophil Count 0.07 10^3/uL (0.0-0.7); Absolute Lymphocyte Count 2.97 10^3/uL (1.2-3.4); Absolute Monocyte Count 0.58 10^3/uL (0.1-0.8); Absolute Neutrophil Count 2.31 10^3/uL (1.2-6.7); Basophils % 1.2; Eosinophils % 1.2; HCT 42.8 % (40.0-50.0); HGB 14.4 g/dL (13.5-17.5); Immature Grans % 0.3; Lymphocytes % 49.3; MCH 27.3 pg (27.0-33.0); MCHC 33.6 % (32.0-36.0); MCV 81 fL (80-95); MPV 8.9 fL (8.0-11.0); Monocytes % 9.6; Neutrophils % 38.4; Platelet Count 284 10^3/uL (130-400); RBC 5.28 10^6/uL (4.36-5.78); RDW 12.8 % (11.8-14.1); RDW-SD 37.3 fL; WBC 6.02 10^3/uL (4.4-10.8)
[2023-09-06 14:37] LABS: Mono Screening Negative (Negative)
--- NOTE | 2023-09-06 15:07 | NUR.NOTE ---
Referral sent via [email or web address] email for sorthroat, neg mono, neg strep throat, seen ENT previously in 2 weeks. Nursing Note:
--- NOTE | 2023-09-07 15:01 | NUR.NOTE ---
Accessed pt chart to determine if antibiotic on on discharge. Nursing Note:
--- NOTE | 2023-09-07 15:12 | W.ED.FU ---
Date of service: 09/07/23 Time of Service: 15:12 Follow Up Plan: The patient's throat culture came back positive for strep a group C. I had seen the patient yesterday. I had written a prescription for penicillin 500 every 6 x10 days. I called the patient at home [phone], I have notified him of the positive throat culture and advised him to take the penicillin as directed. I had previously advised him to take a probiotic while on antibiotics. The patient voiced understanding and agreement to take the antibiotics for the full 10 days. All his questions and concerns were addressed.
== END 2023-09-06 15:32 | disposition home or self-care (01) ==
PROVIDERS: Emergency Provider Emergency Medicine Emergency Medical Services; PCP Physician Assistant
DX: J02.9 Acute pharyngitis, unspecified (principal)
CPT/HCPCS: 99282; 85025; 86308; 87081

== ENCOUNTER 2023-10-15 02:25 | Emergency (ER) | payer MEDICARE, MEDICAID, SELFPAY ==
[2023-10-15 02:30] VITALS: BP 194/126; PULSE 93; RESP 18; TEMP 36.6; O2SAT 99
--- NOTE | 2023-10-15 02:30 | DI.CT_ITS ---
Exam(s) CT ABDOMEN PELVIS W EXAM: CT ABDOMEN PELVIS W CLINICAL HISTORY: abd pain nausea vom diarrhea. TECHNIQUE: Imaging Protocol: Axial computed tomography images with coronal and sagittal reformatted images were created and reviewed CONTRAST MATERIAL: Intravenous: Omnipaque-350 100cc Oral: None COMPARISON: CT ABD PELVIS WITH CONTRAST from 12/25/2017 FINDINGS: VISUALIZED LUNG BASES: No nodules nor pleural effusions evident. ABDOMEN: There is no ascites. LIVER: There are no focal hepatic lesions evident. No dilated intrahepatic ducts. GALLBLADDER/BILIARY: No obvious gallbladder pathology. CBD is not dilated. PANCREAS: No evidence of pancreatic mass nor dilatation of the pancreatic duct. SPLEEN: Spleen size upper normal. No splenic lesions. Splenic and portal veins are patent. ADRENALS: There are no significant adrenal masses. KIDNEYS:No cysts evident. No solid renal masses. No calculi nor hydronephrosis.. ABDOMINAL AORTA: Abdominal aorta is not enlarged. LYMPH NODES:There is no retroperitoneal nor paraaortic adenopathy. ABDOMINAL WALL: No evidence of significant anterior abdominal wall nor inguinal hernia. GI: There is evidence of previous right-sided bowel surgery. There are few mildly dilated left-sided small bowel loops. Measuring up to 2.8 cm. All the small bowel loops are fluid-filled. There some collapse more distal small bowel loops. Colon appears mostly collapsed. Appendix is not seen and is probably surgically absent. PELVIS: GI: No evidence of sigmoid diverticulitis. LYMPH NODES: There is no intrapelvic nor inguinal adenopathy. REPRODUCTIVE: Prostate size normal. Seminal vesicles unremarkable. URINARY BLADDER: No calculi nor obvious masses evident OSSEOUS: Effusion surgery in the thoracolumbar spine with [place] rods. No fractures. No listhes is. IMPRESSION: 1. Fluid throughout the lumen of much of the small bowel with mild dilatation. Evidence of previous right lower quadrant bowel surgery. Correlation any history of inflammatory bowel disease recommende d. Colon is mostly collapsed. May be enteritis but cannot exclude early bowel obstruction. First read by [facility]. Final report called by myself to ER provider 10/18/2023 8:45 a.m. RADIATION DOSE DELIVERED: Total DLP DATA REPOSITORY: All CT scans at this facility are submitted to the National Radiology Data Registry (NRDR) Dose Index Registry (DIR) with the [employer] (A[employer]). RADIATION OPTIMIZATION: All CT scans at this facility use at least one of these dose optimization te chniques: automated exposure control; mA and/or kV adjustment per patient size (includes targeted exa ms where dose is matched to clinical indication); or iterative reconstruction.
[2023-10-15] MEDS: Ondansetron 4 MG/2 ML VIAL (02:36)
[2023-10-15] MEDS: Normal Saline 1,000 ML 1000 ML IV (02:39)
[2023-10-15] MEDS: MORPHine 4 MG/ML SYR 2 MG IVP (02:45)
[2023-10-15] MEDS: Famotidine 20 MG/2 ML VIAL IVP (02:46)
--- NOTE | 2023-10-15 02:51 | ED.GENADUL_ITS ---
Discharge Plan Disposition Patient Disposition: Home Condition: Improving Discharge Details Clinical Impression: Gastroenteritis Primary Care Provider: aPblo Lowe ED Provider: Gavin Menendez Home Meds and New Rx's Prescriptions: New ondansetron HCl 4 mg tablet 4 mg PO Q8H PRN (Reason: nausea and vomiting) Qty: 6 0RF No Action omeprazole 20 mg capsule,delayed release(DR/EC) 20 mg PO DAILY PRN naproxen 250 mg tablet 250 - 500 mg PO BID PRN (Reason: Moderate pain or swelling) Qty: 60 0RF acetaminophen [Tylenol] 325 mg Tablet 650 mg PO Q6H PRN PRNQty: 0 0RF budesonide-formoterol [Symbicort] 80-4.5 mcg/actuation HFA aerosol inhaler 2 inh INHALATION PRN PRN Patient Comments: INHALE 2 PUFFS BY MOUTH TWICE DAILY Discharge Instructions Instructions: Gastroenteritis (ED) Additional Instructions: Please follow-up with your primary care physician. Return to the emergency department for any worsening symptoms. Medical Decision Making 33-year-old male presents with abdominal pain nausea vomiting and diarrhea in the setting of eating ribs earlier this evening, appears uncomfortable on examination however nonperitoneal. Hypertension and borderline tachycardia likely related to discomfort. Patient is afebrile. Consider foodborne illness versus viral illness versus colitis versus must consider biliary colic versus cholecystitis. Screening labs imaging fluids analgesia antiemetics. 4: 55 patient resting comfortably feeling much better after fluids and meds. Evidence of gastroenteritis. Home care instructions and return precautions given HPI General Date/Time Provider Initiated Documentation: 10/15/23 02:29 . HPI Narrative: 33-year-old male presents with approximately 5 hours of nausea vomiting and diarrhea, endorses eating ribs this evening. Endorses stomach discomfort described as cramping. History of past appendectomy Related Data Home Medications Medication Instructions Recorded Confirmed omeprazole 20 mg capsule,delayed 20 mg PO DAILY PRN 11/21/20 10/15/23 release naproxen 250 mg tablet 250 - 500 mg (1 - 2 x 250 mg) PO 05/04/21 10/15/23 BID PRN Moderate pain or swelling #60 tabs acetaminophen 325 mg tablet 650 mg (2 x 325 mg) PO Q6H PRN PRN 09/09/21 10/15/23 (Tylenol) #0 tabs budesonide-formoterol HFA 80 2 inh inhalation PRN PRN 10/23/22 10/15/23 mcg-4.5 mcg/actuation aerosol inhaler (Symbicort) ondansetron HCl 4 mg tablet 4 mg PO Q8H PRN nausea and 10/15/23 vomiting #6 tabs Previous Rx's Medication Instructions Recorded naproxen 250 mg tablet 250 - 500 mg (1 - 2 x 250 mg) PO 05/04/21 BID PRN Moderate pain or swelling #60 tabs acetaminophen 325 mg tablet 650 mg (2 x 325 mg) PO Q6H PRN PRN 09/09/21 (Tylenol) #0 tabs ondansetron HCl 4 mg tablet 4 mg PO Q8H PRN nausea and 10/15/23 vomiting #6 tabs Allergies Allergy/AdvReac Type Severity Reaction Status Date / Time erythromycin base Allergy Verified 10/15/23 02:36 Sulfa (Sulfonamide AdvReac Intermediate Hives Unverified 10/15/23 02:36 Antibiotics) tape Allergy Severe Skin Rash Uncoded 10/15/23 02:36 General Stated Complaint: Nausea/Vomit/Diar MICHAEL: 3 Review of Systems Narrative: Review of Systems Constitutional: negative Eyes: negative ENT: negative Cardiovascular: negative Respiratory: negative Gastrointestinal: Abdominal pain nausea vomiting diarrhea : negative Musculoskeletal: negative Skin: negative Neurologic: negative Psych: negative PFSH All Active Problems (Updated 10/15/23 @ 04:56 by Gavin Menendez MD) Gastroenteritis (Acute) Acute shoulder pain due to trauma (Acute) Acute tonsillitis (Acute) Tendinitis of long head of biceps brachii of right shoulder (Acute) Impingement syndrome of right shoulder (Acute) Bursitis of right shoulder (Acute) Pain in right acromioclavicular joint (Acute) Tendinitis of long head of biceps brachii of both shoulders (Acute) Chronic thoracic back pain (Acute) Cervicalgia (Acute) Cervical radiculopathy (Acute) Medical History Scoliosis Aspergers' syndrome Dysphonia Sleep apnea Asthma GERD (gastroesophageal reflux disease) ADHD Surgical History History of appendectomy History of spinal fusion Social History Smoking/Tobacco Use Status: Never Smoking risk assessment performed?: Yes Alcohol Intake: current Alcohol Intake frequency: holidays/special occasions only Drug use: Rarely Substance use type: marijuana and other Details: CBD. Marijuana use a few puffs a day mostly at night to help me sleep. Household members: none Housing: apartment Pets and animals: Yes Pets and animals: dog(s) Current gender identity: male What type of physical activity do you participate in: walking Seatbelt use: always Do you feel safe at home: Yes Do you feel safe in your relationship?: Yes Exam Narrative Exam Narrative: Physical Examination General: alert, awake, cooperative, appears uncomfortable HEENT: normocephalic, atraumatic; PERRL, EOM intact, conjunctiva normal; no nasal discharge; moist mucous membranes, oral and pharyngeal mucosa normal, tolerating secretions Neck: supple, trachea midline; full ROM Chest: normal to inspection Respiratory: normal respiratory effort, speaking in full sentences, clear to auscultation, no wheezing, rales or rhonchi Cardiac: regular rate, regular rhythm, S1S2 intact, no murmurs rubs or gallops GI: abdomen soft, non-tender, non-distended; no palpable mass or hepatosplenomegaly Skin: no lesions, rashes or trauma appreciated Neuro: AAOx3, normal speech, moving all extremities Psych: Appropriate mood and affect Course Vital Signs Vital signs: Vital Signs Temperature 36.6 C 10/15/23 02:30 Pulse 93 H 10/15/23 02:30 Respiratory Rate 18 10/15/23 02:30 Blood Pressure 194/126 H 10/15/23 02:30 Pulse Oximetry 99 10/15/23 02:30 Temperature 36.6 C 10/15/23 02:30 Temperature Source Skin 10/15/23 02:30 Pulse 93 H 10/15/23 02:30 Respiratory Rate 18 10/15/23 02:30 Respiratory Effort Normal, Non-Labored 10/15/23 02:33 Blood Pressure 194/126 H 10/15/23 02:30 Blood Pressure Position Left Lateral 10/15/23 02:30 Pulse Oximetry 99 10/15/23 02:30 Oxygen Delivery Method Room Air 10/15/23 02:30 Oxygen Flow Rate 0 10/15/23 02:30 Pain Level 8 10/15/23 02:45
[2023-10-15 03:28] LABS: Abs Immature Grans 0.07 10^3/uL (0.0-0.06); Absolute Basophil Count 0.05 10^3/uL (0.0-0.2); Absolute Monocyte Count 1.27 10^3/uL (0.1-0.8); Absolute Neutrophil Count 11.23 10^3/uL (1.2-6.7); Basophils % 0.3; Eosinophils % 0.5; HCT 49.7 % (40.0-50.0); HGB 16.8 g/dL (13.5-17.5); Immature Grans % 0.5; Lymphocytes % 16.3; MCHC 33.8 % (32.0-36.0); MCV 80 fL (80-95); MPV 9.5 fL (8.0-11.0); Monocytes % 8.4; Platelet Count 361 10^3/uL (130-400); RBC 6.23 10^6/uL (4.36-5.78); RDW 12.5 % (11.8-14.1); RDW-SD 35.3 fL; WBC 15.17 10^3/uL (4.4-10.8)
[2023-10-15 03:31] LABS: Absolute Eosinophil Count 0.08 10^3/uL (0.0-0.7); Absolute Lymphocyte Count 2.47 10^3/uL (1.2-3.4)
[2023-10-15 03:48] LABS: ALT 44 U/L (16-63); AST 27 U/L (15-37); Albumin 4.1 g/dL (3.4-5.0); Alkaline Phosphatase 109 U/L (46-116); Anion Gap 12.3 mmol/L (3-11); BUN 21 mg/dL (7-18); Bilirubin, Total 0.6 mg/dL (0.2-1.0); CO2 27.7 mmol/L (21.0-32.0); CREATININE 1.1 mg/dL (0.70-1.30); Calcium 9.5 mg/dL (8.5-10.1); Chloride 101 mmol/L (98-107); Estimated GFR 91.47 (mL/min/1.73m2); Glucose 165 mg/dL (74-106); Lipase 39 U/L (16-77); Potassium 3.7 mmol/L (3.5-5.1); Sodium 141 mmol/L (136-145); Total Protein 8.6 g/dL (6.4-8.2)
[2023-10-15] MEDS: Omnipaque 350 MG/ML 100 ML BTL IJ (03:54)
[2023-10-15] MEDS: Normal Saline - Diluent 50 ML VIAL IJ (03:55)
[2023-10-15] MEDS: Normal Saline Flush 10 ML SYR IVP (03:56)
--- NOTE | 2023-10-15 04:48 | DI.VRAD_ITS ---
PROCEDURE INFORMATION: Exam: CT Abdomen And Pelvis With Contrast Exam date and time: 10/15/2023 3:52 AM Age: 33 years old Clinical indication: Nausea and vomiting and other: Diarrhea; Abdominal pain; Generalized; Prior surgery; Surgery date: 6+ months; Surgery type: Spine fusion and appendectomy; Patient HX: Nausea, vomiting, diarrhea and abd pain TECHNIQUE: Imaging protocol: Computed tomography of the abdomen and pelvis with contrast. Radiation optimization: All CT scans at this facility use at least one of these dose optimization techniques: automated exposure control; mA and/or kV adjustment per patient size (includes targeted exams where dose is matched to clinical indication); or iterative reconstruction. Contrast material: OMNIPAQUE 350; Contrast volume: 100 ml; Contrast route: INTRAVENOUS (IV); COMPARISON: CT ABD PELVIS WITH CONTRAST 12/25/2017 7:01 AM FINDINGS: Liver: Normal. No mass. Gallbladder and bile ducts: Normal. No calcified stones. No ductal dilation. Pancreas: Unremarkable. Spleen: Normal. Adrenal glands: Normal. No mass. Kidneys and ureters: Normal. No hydronephrosis. Stomach and bowel: There is fluid throughout the lumen much of the small bowel and colon, nondilated potentially signifying gastroenteritis. No pneumatosis or portal/mesenteric venous gas. No bowel wall thickening or intestinal obstruction. Appendix: Prior appendectomy. Intraperitoneal space: No pneumoperitoneum or abscess. Vasculature: SMV and SMA are patent as far as can be traced. Lymph nodes: Unremarkable. Urinary bladder: Unremarkable as visualized. Reproductive: Unremarkable as visualized. Bones/joints: Vertebral fusion hardware. Soft tissues: Unremarkable. IMPRESSION: There is fluid throughout the lumen much of the small bowel and colon, nondilated potentially signifying gastroenteritis. Dictated and Authenticated by: Yusuf Scruggs MD. Ordering:CRISSY Alonso MD
[2023-10-15 07:13] VITALS: BP 106/59; PULSE 96; O2SAT 96
--- NOTE | 2023-10-15 08:59 | W.EDPROG ---
Date of service: 10/15/23 Time of Service: 09:00 Medical Decision Making Discussed CT findings with radiologist, Dr. Sinha, call patient, having diarrhea but otherwise feeling improved, no vomiting this morning Encourage liquid diet and close return precautions Encouraged to follow-up with primary care physician with possible outpatient colonoscopy should symptoms persist Discharge Plan Disposition Patient Disposition: Home Condition: Improving Discharge Details Clinical Impression: Gastroenteritis Primary Care Provider: Pablo Lowe ED Provider: Gavin Menendez Home Meds and New Rx's Prescriptions: New ondansetron HCl 4 mg tablet 4 mg PO Q8H PRN (Reason: nausea and vomiting) Qty: 6 0RF No Action omeprazole 20 mg capsule,delayed release(DR/EC) 20 mg PO DAILY PRN naproxen 250 mg tablet 250 - 500 mg PO BID PRN (Reason: Moderate pain or swelling) Qty: 60 0RF acetaminophen [Tylenol] 325 mg Tablet 650 mg PO Q6H PRN PRNQty: 0 0RF budesonide-formoterol [Symbicort] 80-4.5 mcg/actuation HFA aerosol inhaler 2 inh INHALATION PRN PRN Patient Comments: INHALE 2 PUFFS BY MOUTH TWICE DAILY Discharge Instructions Instructions: Gastroenteritis (ED) Additional Instructions: Please follow-up with your primary care physician. Return to the emergency department for any worsening symptoms.
== END 2023-10-15 07:19 | disposition home or self-care (01) ==
PROVIDERS: Emergency Provider Emergency Medicine; PCP Physician Assistant
DX: K52.89 Other specified noninfective gastroenteritis and colitis (principal); R11.2 Nausea with vomiting, unspecified; R10.9 Unspecified abdominal pain; Z88.2 Allergy status to sulfonamides; Z91.09 Other allergy status, other than to drugs and biological substances; J45.909 Unspecified asthma, uncomplicated; Z79.899 Other long term (current) drug therapy
CPT/HCPCS: 00123; 80053; 83690; 96361; 96374; 96375; 99285; 74177; 85025; J2270; J2405; J3490

== ENCOUNTER 2023-11-05 13:27 | Outpatient (REF) | payer MEDICARE, MEDICAID, SELFPAY ==
[2023-11-05 16:14] LABS: ESR 6 mm/hr (0-15)
[2023-11-05 16:15] LABS: HCT 46.7 % (40.0-50.0); HGB 15.8 g/dL (13.5-17.5); MCH 27.2 pg (27.0-33.0); MCHC 33.8 % (32.0-36.0); MCV 81 fL (80-95); MPV 9.8 fL (8.0-11.0); Platelet Count 276 10^3/uL (130-400); RDW 12.9 % (11.8-14.1); RDW-SD 37.4 fL; WBC 5.45 10^3/uL (4.4-10.8)
[2023-11-05 16:31] LABS: ALT 38 U/L (16-63); AST 22 U/L (15-37); Albumin 4.1 g/dL (3.4-5.0); Alkaline Phosphatase 94 U/L (46-116); Anion Gap 7.6 mmol/L (3-11); BUN 14 mg/dL (7-18); Bilirubin, Total 0.6 mg/dL (0.2-1.0); C-Reactive Protein 0.23 mg/dL (0.0-0.3); CO2 30.4 mmol/L (21.0-32.0); Calcium 9.6 mg/dL (8.5-10.1); Chloride 105 mmol/L (98-107); Estimated GFR 102.55 (mL/min/1.73m2); Glucose 81 mg/dL (74-106); Lipase 36 U/L (16-77); Sodium 143 mmol/L (136-145); Total Protein 7.6 g/dL (6.4-8.2)
== END 2023-11-05 13:28 | disposition home or self-care (01) ==
LOC: NCHCN 13:27
PROVIDERS: PCP Physician Assistant; Visit Provider Physician Assistant
DX: K52.9 Noninfective gastroenteritis and colitis, unspecified (principal)
CPT/HCPCS: 80053; 83690; 85027; 85652; 86140

== ENCOUNTER 2024-04-22 13:38 | Emergency (ER) | payer MEDICARE, MEDICAID, SELFPAY ==
[2024-04-22 13:42] VITALS: BP 105/67; PULSE 121; RESP 20; TEMP 37.5; O2SAT 98
--- NOTE | 2024-04-22 14:15 | DI.MRI_ITS ---
Exam(s) MR LUMBAR SPINE WO/W EXAM: MR LUMBAR SPINE WO/W CLINICAL HISTORY: fever chills, back pain, spinal hardware. TECHNIQUE: Multiplanar multisequence MRI of the Lumbar Spine was performed. CONTRAST MATERIAL: IV Contrast: 15 mL of Dotarem contrast administered. COMPARISON: CR XR LUMBAR SPINE AP, LAT from 02/24/2023 FINDINGS: The distal aspects of the patient's posterior spinal rods and pedicle screws are seen extending from the lower thoracic spine to L3. Bones: The last intervertebral disc space is designated the L5/S1 level for the numbering purpose of this examination. The vertebral body heights are well maintained. Alignment is satisfactory. The sig nal characteristics are unremarkable. Cord: The conus tip ends at the T12 level. It is of normal size and signal intensity. T12-L1: No disc herniations or bulges are present. No central spinal canal or neural foraminal stenos is. L1-2: No disc herniations or bulges are present. No central spinal canal or neural foraminal stenosis . L2-3: No disc herniations or bulges are present. No central spinal canal or neural foraminal stenosis . L3-4: No disc herniations or bulges are present. No central spinal canal or neural foraminal stenosis . L4-5: No disc herniations or bulges are present. No central spinal canal or neural foraminal stenosis . L5-S1: No disc herniations or bulges are present. No central spinal canal or neural foraminal stenosi s. Soft tissues: The visualized SI joints and sacrum are well maintained. The paraspinal soft tissues ar e unremarkable. There is no evidence of suspicious enhancement. No findings to suggest discitis or epidural abscess. IMPRESSION: 1. Postsurgical changes with posterior spinal rods and pedicle screws extending from the lower thorac ic spine to L3. 2. No evidence of significant spinal stenosis or neuroforaminal narrowing. 3. No findings to suggest discitis or epidural abscess. DATA REPOSITORY:
--- NOTE | 2024-04-22 14:15 | DI.MRI_ITS ---
Exam(s) MR THORACIC SPINE WO/W EXAM: MR THORACIC SPINE WO/W CLINICAL HISTORY: fever chills back pain, spinal hardware. TECHNIQUE: Multiplanar multisequence MRI of the Thoracic spine was performed. CONTRAST MATERIAL: IV Contrast: 15 mL of Dotarem contrast administered. COMPARISON: CR XR SCOLIOSIS T-L SPINE from 08/22/2020 FINDINGS: Bones: The vertebral body heights are well maintained. There is a right convex lower thoracic scolios is centered at T8. There are posterior spinal rods spanning almost the entire length of the thoracic spine extending into the lumbar spine. The signal characteristics are unremarkable. Cord: There is limited visualization of the mid and lower thoracic spine secondary to artifact from t he patient's posterior spinal surgery. Discs: No disc herniation or bulge is present. Soft tissues: Normal. Within the limits of the examination no abnormal enhancement is seen. No findings to suggest an epid ural abscess or discitis. IMPRESSION: 1. Examination is limited by the patient's orthopedic hardware. 2. There is again seen a marked right convex lower thoracic scoliosis and posterior spinal rods perfecto ing almost the entire length of the thoracic spine and extending into the upper lumbar spine. 3. Within the limits of the examination. No findings are seen to suggest discitis or epidural absces s. 4. No significant central spinal canal or neural foraminal stenosis. DATA REPOSITORY:
--- NOTE | 2024-04-22 14:21 | ED.GENADUL_ITS ---
Discharge Plan Disposition Patient Disposition: Home Condition: Improving Discharge Details Clinical Impression: Back pain Primary Care Provider: Pablo Lowe ED Provider: Gavin Menendez Home Meds and New Rx's Prescriptions: New lidocaine [Lidoderm] 5 % adhesive patch,medicated 1 patch topical DAILY Qty: 15 0RF Rx Instructions: leave on most painful area for up to 12 hrs cyclobenzaprine 5 mg tablet 5 mg PO QHS PRN (Reason: muscle spasm) Qty: 7 0RF No Action omeprazole 20 mg capsule,delayed release(DR/EC) 20 mg PO DAILY PRN naproxen 250 mg tablet 250 - 500 mg PO BID PRN (Reason: Moderate pain or swelling) Qty: 60 0RF acetaminophen [Tylenol] 325 mg Tablet 650 mg PO Q6H PRN PRNQty: 0 0RF budesonide-formoterol [Symbicort] 80-4.5 mcg/actuation HFA aerosol inhaler 2 inh INHALATION PRN PRN Patient Comments: INHALE 2 PUFFS BY MOUTH TWICE DAILY Discharge Instructions Instructions: Low Back Pain ED Additional Instructions: Please follow-up with your primary care physician as well as your spinal specialist team return to the emergency department for any worsening symptoms HPI General Date/Time Provider Initiated Documentation: 04/22/24 14:06 . HPI Narrative: 33-year-old male history of thoracolumbar fusion for scoliosis in 2007 presents with severe atraumatic back pain associated with sensation of feeling cold and having the chills at home last night, describes change sensation bilateral lower extremities, denies bowel or bladder issues denies saddle anesthesia or paresthesia, does some heavy lifting at work however did not noted any new trauma. No falls. Denies intravenous drug use Related Data Home Medications Medication Instructions Recorded Confirmed omeprazole 20 mg capsule,delayed 20 mg PO DAILY PRN 11/21/20 04/22/24 release naproxen 250 mg tablet 250 - 500 mg (1 - 2 x 250 mg) PO 05/04/21 04/22/24 BID PRN Moderate pain or swelling #60 tabs acetaminophen 325 mg tablet 650 mg (2 x 325 mg) PO Q6H PRN PRN 09/09/21 04/22/24 (Tylenol) #0 tabs budesonide-formoterol HFA 80 2 inh inhalation PRN PRN 10/23/22 04/22/24 mcg-4.5 mcg/actuation aerosol inhaler (Symbicort) cyclobenzaprine 5 mg tablet 5 mg PO QHS PRN muscle spasm #7 04/22/24 tabs lidocaine 5 % topical patch 1 patch topical DAILY #15 ea 04/22/24 (Lidoderm) Previous Rx's Medication Instructions Recorded naproxen 250 mg tablet 250 - 500 mg (1 - 2 x 250 mg) PO 05/04/21 BID PRN Moderate pain or swelling #60 tabs acetaminophen 325 mg tablet 650 mg (2 x 325 mg) PO Q6H PRN PRN 09/09/21 (Tylenol) #0 tabs cyclobenzaprine 5 mg tablet 5 mg PO QHS PRN muscle spasm #7 04/22/24 tabs lidocaine 5 % topical patch 1 patch topical DAILY #15 ea 04/22/24 (Lidoderm) Allergies Allergy/AdvReac Type Severity Reaction Status Date / Time erythromycin base Allergy Other (See Verified 04/22/24 13:45 Comment) Sulfa (Sulfonamide AdvReac Intermediate Hives Unverified 04/22/24 13:45 Antibiotics) tape Allergy Severe Skin Rash Uncoded 04/22/24 13:45 General Stated Complaint: Nk/Back Pain MICHAEL: 3 Review of Systems Narrative: Review of Systems Constitutional: negative Eyes: negative ENT: negative Cardiovascular: negative Respiratory: negative Gastrointestinal: negative : negative Musculoskeletal: Back pain Skin: negative Neurologic: Change sensation bilateral lower extremities Psych: negative Exam Narrative Exam Narrative: Physical Examination General: alert, awake, cooperative, extremely uncomfortable HEENT: normocephalic, atraumatic; PERRL, EOM intact, conjunctiva normal; no nasal discharge; moist mucous membranes, oral and pharyngeal mucosa normal, tolerating secretions Neck: supple, trachea midline; full ROM Chest: normal to inspection Respiratory: normal respiratory effort, speaking in full sentences, clear to auscultation, no wheezing, rales or rhonchi Cardiac: Tachycardia, regular rhythm, S1S2 intact, no murmurs rubs or gallops GI: abdomen soft, non-tender, non-distended; no palpable mass or hepatosplenomegaly : Sensation perineal region intact Back: Midline spinal tenderness lower thoracic upper lumbar region without step- off crepitus or deformity Skin: no lesions, rashes or trauma appreciated Neuro: AAOx3, cranial nerves II through XII intact out of 5 strength upper and lower extremities bilaterally, sensation to light touch intact throughout extremities however slightly diminished in bilateral lower extremities at the level of pretibial region Extremities: No signs of trauma Psych: Appropriate mood and affect Course Vital Signs Vital signs: Vital Signs Temperature 37.5 C 04/22/24 13:42 Pulse 121 H 04/22/24 13:42 Respiratory Rate 20 04/22/24 13:42 Blood Pressure 105/67 04/22/24 13:42 Pulse Oximetry 98 04/22/24 13:42 Temperature 37.5 C 04/22/24 13:42 Temperature Source Oral 04/22/24 13:42 Pulse 121 H 04/22/24 13:42 Respiratory Rate 20 04/22/24 13:42 Respiratory Effort Non-Labored 04/22/24 13:48 Blood Pressure 105/67 04/22/24 13:42 Blood Pressure Position Sitting 04/22/24 13:42 Pulse Oximetry 98 04/22/24 13:42 Oxygen Delivery Method Room Air 04/22/24 13:42 Oxygen Flow Rate 0 04/22/24 13:42 Pain Level 8 04/22/24 13:42 Lab/Test Results Lab/Test Results: 04/22/24 14:15 Blood Blood Culture - Pending 04/22/24 14:15 Blood Blood Culture - Pending Medical Decision Making 33-year-old male history of spinal fusion for scoliosis thoracolumbar region performed in 2007 at [facility] presents with acute onset back pain this morning associated with subjective chills and now full body aches, as well as bilateral lower extremity slight decrease in sensation to light touch, no bowel or bladder issues, perineal sensation intact on examination, 5-5 strength upper lower extremities bilaterally, patient does have some midline spinal tenderness lower thoracic and upper lumbar region without step-off crepitus deformity, afebrile here on arrival however noted to be tachycardic and very uncomfortable, patient endorses heavy lifting at work nothing out of the ordinary denies any new trauma, patient denies intravenous drug use, given history and physical must consider spinal epidural abscess versus less likely spinal epidural hematoma muscles consider migration of hardware versus hardware failure versus early cauda equina lower suspicion for spinal cord malignancy muscles consider bacteremia or systemic infection versus viral illness versus severe muscle spasm versus severe radiculopathy. Will obtain stat MRI with contrast thoracolumbar spine patient endorses that his hardware is MRI safe. Will provide analgesia anti-inflammatory fluids will obtain basic labs disposition pending reassessment and results of MRI 18: 33 resting more comfortably after medications, MRI negative for spinal cord pathology. Will trial anti-inflammatory analgesics consider severe spasm. Close reassessment will attempt to ambulate patient if improving and ambulatory will discharge home and encourage close follow-up with spinal specialist team at [facility] 19: 27 patient resting comfortably no acute distress. Ambulatory without issue. No ataxia no weakness. Quality:[facility] Health Related Social Needs: No Data to Display [facility] All Active Problems (Updated 04/22/24 @ 19:28 by Gavin Menendez MD) Back pain (Acute) Acute shoulder pain due to trauma (Acute) Acute tonsillitis (Acute) Tendinitis of long head of biceps brachii of right shoulder (Acute) Impingement syndrome of right shoulder (Acute) Bursitis of right shoulder (Acute) Pain in right acromioclavicular joint (Acute) Tendinitis of long head of biceps brachii of both shoulders (Acute) Chronic thoracic back pain (Acute) Cervicalgia (Acute) Cervical radiculopathy (Acute) Medical History Scoliosis Aspergers' syndrome Dysphonia Sleep apnea Asthma GERD (gastroesophageal reflux disease) ADHD Surgical History History of appendectomy History of spinal fusion Social History Smoking/Tobacco Use Status: Never Smoking risk assessment performed?: Yes Alcohol Intake: current Alcohol Intake frequency: holidays/special occasions only Drug use: Rarely Substance use type: marijuana and other Details: CBD. Marijuana use a few puffs a day mostly at night to help me sleep. Household members: none Housing: apartment Pets and animals: Yes Pets and animals: dog(s) Current gender identity: male What type of physical activity do you participate in: walking Seatbelt use: always Do you feel safe at home: Yes Do you feel safe in your relationship?: Yes
[2024-04-22] MEDS: ACETAMINOPHEN 1,000 MG/100 ML BTL 400 MG IVPB (14:50)
[2024-04-22] MEDS: Normal Saline 1,000 ML 1000 ML IV (14:51)
[2024-04-22] MEDS: LORazepam 2 MG/ML VIAL 1 MG IVP (14:51)
[2024-04-22] MEDS: Ketorolac 15 MG/ML VIAL IVP (14:51)
[2024-04-22 14:55] LABS: Abs Immature Grans 0.04 10^3/uL (0.0-0.06); Absolute Basophil Count 0.03 10^3/uL (0.0-0.2); Absolute Eosinophil Count 0.01 10^3/uL (0.0-0.7); Absolute Lymphocyte Count 1.23 10^3/uL (1.2-3.4); Absolute Monocyte Count 0.99 10^3/uL (0.1-0.8); Absolute Neutrophil Count 7.86 10^3/uL (1.2-6.7); Basophils % 0.3 %; Eosinophils % 0.1 %; HCT 44.3 % (40.0-50.0); HGB 15.5 g/dL (13.5-17.5); Immature Grans % 0.4 %; Lymphocytes % 12.1 %; MCH 28.3 pg (27.0-33.0); MCV 81 fL (80-95); MPV 9.6 fL (8.0-11.0); Monocytes % 9.7 %; Neutrophils % 77.4 %; Platelet Count 243 10^3/uL (130-400); RBC 5.48 10^6/uL (4.36-5.78); RDW 12.1 % (11.8-14.1); RDW-SD 35.7 fL; WBC 10.16 10^3/uL (4.4-10.8)
[2024-04-22 15:08] LABS: INR 1.1 (0.9-1.1); PTT Activated 23.2 sec (23.6-32.8)
[2024-04-22 15:20] LABS: ALT 30 U/L (16-63); AST 19 U/L (15-37); Albumin 4.2 g/dL (3.4-5.0); Alkaline Phosphatase 95 U/L (46-116); Anion Gap 13.5 mmol/L (3-11); BUN 22 mg/dL (7-18); Bilirubin, Total 1.12 mg/dL (0.2-1.0); CO2 24.5 mmol/L (21.0-32.0); Calcium 9.3 mg/dL (8.5-10.1); Chloride 101 mmol/L (98-107); Estimated GFR 102.55 (mL/min/1.73m2); Glucose 96 mg/dL (74-106); Potassium 3.7 mmol/L (3.5-5.1); Sodium 139 mmol/L (136-145); Total Protein 7.9 g/dL (6.4-8.2)
[2024-04-22 15:42] LABS: COVID-19 PCR Negative (Negative); Influenza A PCR Negative (Negative); Influenza B PCR Negative (Negative); RSV PCR Negative (Negative); Source NASOPHARYNX
[2024-04-22] MEDS: Normal Saline Flush 10 ML SYR IVP (16:45)
[2024-04-22] MEDS: Gadoterate meglumine 20 ML SYRINGE 15 ML IVP (16:45)
--- NOTE | 2024-04-22 17:54 | DI.VRAD_ITS ---
PROCEDURE INFORMATION: Exam: MR Thoracic Spine Without and With Contrast Exam date and time: 04/22/2024 4:36 PM Age: 33 years old Clinical indication: Pain in thoracic spine; Prior surgery; Surgery date: 6+ months; Surgery type: Spine fixation 2006 TECHNIQUE: Imaging protocol: Magnetic resonance imaging of the thoracic spine without and with contrast. Contrast material: DOTAREM; Contrast volume: 15 ml; Contrast route: INTRAVENOUS (IV); COMPARISON: CR XR SCOLIOSIS T-L SPINE 08/22/2020 2:53 PM FINDINGS: Limitations: The study is limited secondary to metallic artifact. Bones/joints: The patient is status post posterior thoracic spinal fusion. No evidence of severe degenerative changes. The bilateral neural foramina appear grossly patent. No evidence of significant spinal canal stenosis. The vertebral body heights are maintained without evidence to suggest fracture. Spinal cord: The spinal cord is deviated to the right aspect of the spinal canal, secondary to curvature. Soft tissues: Unremarkable. IMPRESSION: 1. Limited examination secondary to metallic artifact. 2. No significant spinal canal stenosis or severe neural foraminal narrowing. 3. The vertebral body heights are maintained. Dictated and Authenticated by: Francesca Waldrop MD. Ordering:CRISSY Alonso MD
--- NOTE | 2024-04-22 18:02 | DI.VRAD_ITS ---
PROCEDURE INFORMATION: Exam: MR Lumbar Spine Without and With Contrast Exam date and time: 04/22/2024 4:15 PM Age: 33 years old Clinical indication: Low back pain; Prior surgery; Surgery date: 6+ months; Surgery type: Spine hardware 2006; Patient HX: Back pain, fever, chills TECHNIQUE: Imaging protocol: Magnetic resonance imaging of the lumbar spine without and with contrast. Contrast material: DOTAREM; Contrast volume: 15 ml; Contrast route: INTRAVENOUS (IV); COMPARISON: CR XR LUMBAR SPINE AP, LAT 02/24/2023 4:09 PM FINDINGS: Limitations: There is metallic artifact spinal prostheses, slightly limiting evaluation. Bones/joints: The vertebral body heights are maintained. No fracture. No evidence of abnormal enhancement. Spinal cord: Visualized cord, conus medullaris and cauda equina are unremarkable without compression. L1-L2: No significant disc bulge or herniation. No severe spinal canal stenosis. No significant neural foraminal narrowing. L2-L3: No significant disc bulge or herniation. No severe spinal canal stenosis. No significant neural foraminal narrowing. L3-L4: No significant disc bulge or herniation. No severe spinal canal stenosis. No significant neural foraminal narrowing. L4-L5: No significant disc bulge or herniation. No severe spinal canal stenosis. No significant neural foraminal narrowing. L5-S1: No significant disc bulge or herniation. No severe spinal canal stenosis. No significant neural foraminal narrowing. Soft tissues: No findings to suggest abscess formation. IMPRESSION: 1. No evidence of significant degenerative changes. 2. No significant spinal canal stenosis or neural foraminal narrowing. 3. No evidence of abnormal enhancement or abscess formation. Dictated and Authenticated by: Francesca Waldrop MD. Ordering:CRISSY Alonso MD
[2024-04-22] MEDS: Cyclobenzaprine 10 MG TAB PO (18:44)
[2024-04-22] MEDS: Dexamethasone 10 MG/ML VIAL IVP (18:44)
[2024-04-22 19:37] VITALS: BP 112/68; PULSE 72; RESP 16; TEMP 37.5; O2SAT 98
== END 2024-04-22 19:37 | disposition home or self-care (01) ==
PROVIDERS: Emergency Provider Emergency Medicine; PCP Physician Assistant
DX: M54.6 Pain in thoracic spine (principal); M43.26 Fusion of spine, lumbar region
CPT/HCPCS: 36415; 72158; 80053; 87040; 87637; 96361; 96365; 96375; 99284; 72157; 85025; 85610; 85730; 99283; J0131; J1100; J1885; J2060

== ENCOUNTER 2024-04-26 15:57 | Outpatient (REF) | payer MEDICARE, MEDICAID, SELFPAY ==
[2024-04-28 10:59] LABS: Lyme Ab w Rflx to Lyme Confirm Negative (Negative)
[2024-04-30 12:59] LABS: Anaplasma phagocytophilum Negative (Negative); B. miyamotoi PCR Negative (Negative); Babesia divergens/MO-1 Negative (Negative); Babesia duncani Negative (Negative); Babesia microti Negative (Negative); Ehrlichia chaffeensis Negative (Negative); Ehrlichia ewingii/canis Negative (Negative); Ehrlichia muris eauclairensis Negative (Negative)
== END 2024-04-26 15:58 | disposition home or self-care (01) ==
LOC: NCHCN 15:57
PROVIDERS: PCP Physician Assistant; Visit Provider Nurse Practitioner Family
DX: T14.8XXA Other injury of unspecified body region, initial encounter (principal); W57.XXXA Bitten or stung by nonvenomous insect and other nonvenomous arthropods, initial encounter; Z11.8 Encounter for screening for other infectious and parasitic diseases
CPT/HCPCS: 87798; 86618

== ENCOUNTER 2025-04-04 08:12 | Emergency (ER) | payer MEDICARE, MEDICAID, SELFPAY ==
[2025-04-04 08:19] VITALS: BP 129/73; PULSE 69; RESP 18; TEMP 36.5; O2SAT 98
[2025-04-04 08:24] VITALS: BP 129/73; PULSE 69; RESP 18; TEMP 36.5; O2SAT 98
--- NOTE | 2025-04-04 08:33 | ED.GENADUL_ITS ---
Discharge Plan Disposition Patient Disposition: Home Condition: Stable Discharge Details Clinical Impression: Bitten by rat as cause of accidental injury Primary Care Provider: Pablo Lowe ED Provider: Demetrice Edwards Home Meds and New Rx's Prescriptions: New amoxicillin-pot clavulanate 875-125 mg tablet 1 tab PO BID 7 Days Qty: 14 0RF Continued omeprazole 20 mg capsule,delayed release(DR/EC) 20 mg PO DAILY PRN naproxen 250 mg tablet 250 - 500 mg PO BID PRN (Reason: Moderate pain or swelling) Qty: 60 0RF acetaminophen [Tylenol] 325 mg Tablet 650 mg PO Q6H PRN PRNQty: 0 0RF budesonide-formoterol [Symbicort] 80-4.5 mcg/actuation HFA aerosol inhaler 2 inh INHALATION PRN PRN Patient Comments: INHALE 2 PUFFS BY MOUTH TWICE DAILY lidocaine [Lidoderm] 5 % adhesive patch,medicated 1 patch topical DAILY Qty: 15 0RF Rx Instructions: leave on most painful area for up to 12 hrs cyclobenzaprine 5 mg tablet 5 mg PO QHS PRN (Reason: muscle spasm) Qty: 7 0RF Discharge Instructions Instructions: Rabies Immune Globulin (Human), Rabies Vaccine, Animal Bites ED Additional Instructions: You were given the rabies immunoglobulin which is preventative for rabies today and the rabies vaccination. You need to have an additional rabies vaccination on day #3, # 7 ,and #14 which is 3 additional doses. You may follow-up at primary care provider or return to the ER if they do not have the rabies vaccination. You are also given antibiotics, please take these with yogurt or a probiotic daily as prescribed. Keep the wound clean and dry may wash it with running soap and water daily. Allow to air dry at least 2 hours a day. Your last tetanus vaccination was in 2021 which is up-to-date so you are not given a tetanus today. Follow up with primary care provider in 3-5 days. Return to ED sooner if any worsening or concerns. Thank you for allowing us to care for you today. Referrals: Pablo Lowe [Primary Care Provider] - 3 days (Needs additional rabies vaccination doses) Discharge Data Discharge Date/Time-TO BE ENTERED AT DEPARTURE: 04/04/25 09:45 HPI General Mode of arrival: ambulatory . Date/Time Provider Initiated Documentation: 04/04/25 08:20 . Limitations to Documentation: no limitations . Information obtained by: patient, RN notes reviewed and old records reviewed . HPI Narrative: 34-year-old male presents to the ER after sustaining a rat bite to his left thumb around 7:00 this morning. Patient was pulling a rat out of a sticky trap it was still alive it turned around and bit him. He is concerned for rabies. His last tetanus vaccination was in 2021. He does have an area of broken skin around his left thumb cuticle. I did discuss the risks and benefits of the rabies prophylaxis he agrees and is requesting the rabies prophylaxis. Past medical history wear splint until follow-up with orthopedics. Do not get splint wet. Loosen Francis wrap if any problems with circulation such as cold blue numb or tingly fingers. If splint gets wet please return to ED., Asperger syndrome, sleep apnea asthma GERD ADHD. Related Data Home Medications ?Medication ?Instructions ?Recorded ?Confirmed omeprazole 20 mg capsule,delayed 20 mg PO DAILY PRN 11/21/20 04/04/25 release naproxen 250 mg tablet 250 - 500 mg (1 - 2 x 250 mg) PO 05/04/21 04/04/25 BID PRN Moderate pain or swelling #60 tabs acetaminophen 325 mg tablet 650 mg (2 x 325 mg) PO Q6H PRN PRN 09/09/21 04/04/25 (Tylenol) #0 tabs budesonide-formoterol HFA 80 2 inh inhalation PRN PRN 10/23/22 04/04/25 mcg-4.5 mcg/actuation aerosol inhaler (Symbicort) cyclobenzaprine 5 mg tablet 5 mg PO QHS PRN muscle spasm #7 04/22/24 04/04/25 tabs lidocaine 5 % topical patch 1 patch topical DAILY #15 ea 04/22/24 04/04/25 (Lidoderm) amoxicillin 875 mg-potassium 1 tab PO BID 7 days #14 tabs 04/04/25 clavulanate 125 mg tablet Previous Rx's ?Medication ?Instructions ?Recorded naproxen 250 mg tablet 250 - 500 mg (1 - 2 x 250 mg) PO 05/04/21 BID PRN Moderate pain or swelling #60 tabs acetaminophen 325 mg tablet 650 mg (2 x 325 mg) PO Q6H PRN PRN 09/09/21 (Tylenol) #0 tabs cyclobenzaprine 5 mg tablet 5 mg PO QHS PRN muscle spasm #7 04/22/24 tabs lidocaine 5 % topical patch 1 patch topical DAILY #15 ea 04/22/24 (Lidoderm) amoxicillin 875 mg-potassium 1 tab PO BID 7 days #14 tabs 04/04/25 clavulanate 125 mg tablet Allergies Allergy/AdvReac Type Severity Reaction Status Date / Time erythromycin base Allergy Other (See Verified 04/04/25 08:30 Comment) Sulfa (Sulfonamide AdvReac Intermediate Hives Unverified 04/04/25 08:30 Antibiotics) tape Allergy Severe Skin Rash Uncoded 04/04/25 08:30 General Stated Complaint: AnimalBite MICHAEL: 4 Review of Systems Integumentary/Breasts Skin/Breast: Reports as per HPI and Reports wounds (Rodent bite, left thumb) Exam Extrem General: normal to inspection Left upper extremity: hand Details: puncture wound (Left lateral cuticle area Thumb) Hand/finger images: 2 1. Dried blood noted, small puncture wound Course Vital Signs Vital signs: Vital Signs Temperature 36.5 C 04/04/25 08:19 Pulse 69 04/04/25 08:19 Respiratory Rate 18 04/04/25 08:19 Blood Pressure 129/73 04/04/25 08:19 Pulse Oximetry 98 04/04/25 08:19 Temperature 36.5 C 04/04/25 08:24 Temperature Source Oral 04/04/25 08:24 Pulse 69 04/04/25 08:24 Respiratory Rate 18 04/04/25 08:24 Blood Pressure 129/73 04/04/25 08:24 Blood Pressure Position Sitting 04/04/25 08:24 Pulse Oximetry 98 04/04/25 08:24 Oxygen Delivery Method Room Air 04/04/25 08:24 Oxygen Flow Rate 0 04/04/25 08:24 Medical Decision Making 34-year-old male presents to the ER after sustaining a rat bite to his left thumb around 7:00 this morning. Patient was pulling a rat out of a sticky trap it was still alive it turned around and bit him. He is concerned for rabies. His last tetanus vaccination was in 2021. He does have an area of broken skin around his left thumb cuticle. I did discuss the risks and benefits of the rabies prophylaxis he agrees and is requesting the rabies prophylaxis. Past medical history wear splint until follow-up with orthopedics. Do not get splint wet. Loosen Francis wrap if any problems with circulation such as cold blue numb or tingly fingers. If splint gets wet please return to ED., Asperger syndrome, sleep apnea asthma GERD ADHD. Patient is up-to-date on tetanus vaccination last tetanus was 2021, discussed low risk of bite with a rat for rabies. He is requesting the rabies prophylaxis. The immunoglobulin and vaccine was ordered. Will clean with chlorhexidine, also give Augmentin to treat empirically for rodent bite. Patient was observed in the department for approximately 15 minutes for reaction to vaccination, no reaction noted. Patient discharged hemodynamically stable condition. Given form to return on days 3 7 and 14 or to follow-up with PCP for additional rabies vaccination. Verbalized understanding. This text was generated using eDealyaation system, please disregard any oddities of phrase or misspellings. Quality:SDOH Health Related Social Needs: 2 No Data to Display PFSH All Active Problems (Updated 04/04/25 @ 08:42 by Demetrice Edwards NP) Bitten by rat as cause of accidental injury (Acute) Acute shoulder pain due to trauma (Acute) Acute tonsillitis (Acute) Tendinitis of long head of biceps brachii of right shoulder (Acute) Impingement syndrome of right shoulder (Acute) Bursitis of right shoulder (Acute) Pain in right acromioclavicular joint (Acute) Tendinitis of long head of biceps brachii of both shoulders (Acute) Chronic thoracic back pain (Acute) Cervicalgia (Acute) Cervical radiculopathy (Acute) Medical History Scoliosis Aspergers' syndrome Dysphonia Sleep apnea Asthma GERD (gastroesophageal reflux disease) ADHD Surgical History History of appendectomy History of spinal fusion Social History Smoking/Tobacco Use Status: Never Smoking risk assessment performed?: Yes Alcohol Intake: current Alcohol Intake frequency: holidays/special occasions only Drug use: Rarely Substance use type: marijuana and other Details: CBD. Marijuana use a few puffs a day mostly at night to help me sleep. Household members: none Housing: apartment Pets and animals: Yes Pets and animals: dog(s) Current gender identity: male What type of physical activity do you participate in: walking Seatbelt use: always Do you feel safe at home: Yes Do you feel safe in your relationship?: Yes
[2025-04-04] MEDS: Amoxicillin 875/Clav. 125 TAB PO (08:51)
[2025-04-04] MEDS: Rabies vaccine (PCEC)/PF 2.5 UNITS/ML VIAL IM (09:03)
[2025-04-04] MEDS: Rabies Immune Globulin 1,500 UNIT/5 ML VIAL 1450 UNITS IM (09:09)
[2025-04-04 09:27] VITALS: BP 119/72; PULSE 69; RESP 16; O2SAT 99
--- NOTE | 2025-04-06 07:57 | NUR.NOTE ---
Access chart to determine when patient was to come for his rabies vaccination. Was able to view the orders and he was to be here the . I also faxed the orders to Infusion in case it had not already been done. Nursing Note:
== END 2025-04-04 09:45 | disposition home or self-care (01) ==
PROVIDERS: Emergency Provider Registered Nurse Emergency; PCP Physician Assistant
DX: S61.052A Open bite of left thumb without damage to nail, initial encounter (principal); Z98.1 Arthrodesis status; W53.11XA Bitten by rat, initial encounter; Y93.89 Activity, other specified; Y92.018 Other place in single-family (private) house as the place of occurrence of the external cause
CPT/HCPCS: 90375; 90471; 96372; 99283; 90675

== ENCOUNTER 2025-04-18 02:51 | Outpatient (RCR) | payer MEDICARE, MEDICAID, SELFPAY ==
[2025-04-07] MEDS: Rabies vaccine (PCEC)/PF 2.5 UNITS/ML VIAL (07:08)
[2025-04-11] MEDS: Rabies vaccine (PCEC)/PF 2.5 UNITS/ML VIAL IM (07:00)
[2025-04-18] MEDS: Rabies vaccine (PCEC)/PF 2.5 UNITS/ML VIAL IM (07:05)
== END 2025-04-25 23:59 | disposition home or self-care (01) ==
LOC: INF 02:51
PROVIDERS: PCP Physician Assistant; Visit Provider Registered Nurse Emergency
DX: Z20.3 Contact with and (suspected) exposure to rabies (principal); Z29.14 Encounter for prophylactic rabies immune globulin
CPT/HCPCS: 96372; 90675

== ENCOUNTER 2025-10-12 21:19 | Emergency (ER) | payer MEDICARE, MEDICAID, SELFPAY ==
[2025-10-12] VITALS (14 sets, daily range): BP systolic 108–119; BP diastolic 72–86; PULSE 99–113; RESP 20; TEMP 37.7; O2SAT 94–98
--- NOTE | 2025-10-12 21:36 | W.ED.GENAD ---
Discharge Plan Discharge Details Chief Complaint: Nausea/Vomit/Diar Primary Care Provider: Pablo Lowe ED Provider: Pérez Morales Home Meds and New Rx's Prescriptions: No Action omeprazole 20 mg capsule,delayed release(DR/EC) 20 mg PO DAILY PRN naproxen 250 mg tablet 250 - 500 mg PO BID PRN (Reason: Moderate pain or swelling) Qty: 60 0RF acetaminophen [Tylenol] 325 mg Tablet 650 mg PO Q6H PRN PRNQty: 0 0RF budesonide-formoterol [Symbicort] 80-4.5 mcg/actuation HFA aerosol inhaler 2 inh INHALATION PRN PRN Patient Comments: INHALE 2 PUFFS BY MOUTH TWICE DAILY lidocaine [Lidoderm] 5 % adhesive patch,medicated 1 patch topical DAILY Qty: 15 0RF Rx Instructions: leave on most painful area for up to 12 hrs cyclobenzaprine 5 mg tablet 5 mg PO QHS PRN (Reason: muscle spasm) Qty: 7 0RF HPI General Date/Time Provider Initiated Documentation: 10/12/25 21:26. HPI Narrative: 35 year-old male presents to ED today by POV/unable to ambulate with his father with a chief complaint of severe lower back pain, nausea/vomiting/diarrhea with onset for the past 4 days, vomiting started today. Quality described as severe acute on chronic lower back pain with surgical history, no radiation to numbness to legs, numbness to genitalia, sensory deficits, dysuria, abdominal pain, cough, chest pain, shortness of breath. Severity is described as severe. Palliating factors include Tylenol and naproxen without relief, cannot keep his cyclobenzaprine down. Provoking factors include any movement. Events leading up to the incident/Associated Symptoms: Patient had thoracolumbar fusion for scoliosis in 2007. Patient not anticoagulated. Related Data Home Medications ?Medication ?Instructions ?Recorded ?Confirmed omeprazole 20 mg capsule,delayed 20 mg PO DAILY PRN 11/21/20 10/12/25 release naproxen 250 mg tablet 250 - 500 mg (1 - 2 x 250 mg) PO 05/04/21 10/12/25 BID PRN Moderate pain or swelling #60 tabs acetaminophen 325 mg tablet 650 mg (2 x 325 mg) PO Q6H PRN PRN 09/09/21 10/12/25 (Tylenol) #0 tabs budesonide-formoterol HFA 80 2 inh inhalation PRN PRN 10/23/22 10/12/25 mcg-4.5 mcg/actuation aerosol inhaler (Symbicort) cyclobenzaprine 5 mg tablet 5 mg PO QHS PRN muscle spasm #7 04/22/24 10/12/25 tabs lidocaine 5 % topical patch 1 patch topical DAILY #15 ea 04/22/24 10/12/25 (Lidoderm) Previous Rx's ?Medication ?Instructions ?Recorded naproxen 250 mg tablet 250 - 500 mg (1 - 2 x 250 mg) PO 05/04/21 BID PRN Moderate pain or swelling #60 tabs acetaminophen 325 mg tablet 650 mg (2 x 325 mg) PO Q6H PRN PRN 09/09/21 (Tylenol) #0 tabs cyclobenzaprine 5 mg tablet 5 mg PO QHS PRN muscle spasm #7 04/22/24 tabs lidocaine 5 % topical patch 1 patch topical DAILY #15 ea 04/22/24 (Lidoderm) Allergies Allergy/AdvReac Type Severity Reaction Status Date / Time garlic Allergy Intermediate Diarrhea Verified 10/12/25 21:50 gluten Allergy Intermediate Diarrhea Verified 10/12/25 21:50 Milk Containing Products Allergy Intermediate Diarrhea Verified 10/12/25 21:50 (Dairy) soy Allergy Intermediate Diarrhea Verified 10/12/25 21:50 nylon Allergy Mild rash Verified 10/12/25 21:50 onion Allergy Mild Diarrhea Verified 10/12/25 21:50 erythromycin base Allergy Other (See Verified 10/12/25 21:50 Comment) Sulfa (Sulfonamide AdvReac Intermediate Hives Unverified 10/12/25 21:50 Antibiotics) tape Allergy Severe Skin Rash Uncoded 10/12/25 21:50 General Stated Complaint: Nausea/Vomit/Diar MICHAEL: 3 Review of Systems All systems reviewed & are unremarkable except as noted in HPI and below Exam Narrative Exam Narrative: GENERAL APPEARANCE: Well-nourished, toxic, awake and alert, atraumatic, moderate acute distress. SKIN: Warm, pink, dry, intact, without rashes/lesions/ulcerations. HEAD: Normocephalic, atraumatic, normal hair distribution for gender/age. EYES: Normal conjunctiva, no exudates on lids/lashes. ENT: Nares patent, no circumoral cyanosis, no facial swelling NECK: Supple, trachea midline, painless cervical ROM. LUNGS/CHEST: Lungs -mild wheezing present mostly in the apices, non-labored respirations, normal A/P diameter, symmetrical expansion, no chest wall deformity HEART (CV/PV): Regular rate and rhythm without murmur, no peripheral edema, no JVD. ABDOMEN: Soft, non-distended, no guarding, no tenderness, no rebound tenderness, negative Alaniz sign. MSK: No swelling/deformity to bilateral UEs or LEs, moving all extremities with weakness due to pain, no cyanosis, spine midline with exquisite midline lumbar tenderness in lower lumbar back without crepitus, step-offs, or fluctuance, sensation intact lower extremities, no saddle anesthesia NEURO: Mental Status AAOx4 - alert to person, place, time, events No facial droop, no forehead involvement. Sensory: sensation intact to light touch globally. Gait NT. PSYCH: euthymic, cooperative, pleasant, appropriate speech Course Vital Signs Vital signs: Vital Signs Temperature 37.7 C H 10/12/25 21:21 Pulse 108 H 10/12/25 21:21 Respiratory Rate 20 10/12/25 21:21 Blood Pressure 119/72 10/12/25 21:21 Pulse Oximetry 95 10/12/25 21:21 Temperature 37.7 C H 10/12/25 21:21 Temperature Source Oral 10/12/25 21:21 Pulse 108 H 10/12/25 21:21 Respiratory Rate 20 10/12/25 21:21 Blood Pressure 119/72 10/12/25 21:21 Blood Pressure Position Supine 10/12/25 21:21 Pulse Oximetry 95 10/12/25 21:21 Oxygen Delivery Method Room Air 10/12/25 21:21 Oxygen Flow Rate 0 10/12/25 21:21 Pain Level 10 10/12/25 21:21 Medical Decision Making This dictation utilizes [id number] dictation software and may contain unedited grammatical errors. 35 year-old male presents to ED today by POV/unable to ambulate with his father with a chief complaint of severe lower back pain, nausea/vomiting/diarrhea with onset for the past 4 days, vomiting started today. Quality described as severe acute on chronic lower back pain with surgical history, no radiation to numbness to legs, numbness to genitalia, sensory deficits, dysuria, abdominal pain, cough, chest pain, shortness of breath. Severity is described as severe. Palliating factors include Tylenol and naproxen without relief, cannot keep his cyclobenzaprine down. Provoking factors include any movement. Events leading up to the incident/Associated Symptoms: Patient had thoracolumbar fusion for scoliosis in 2007. Patients' medical history: History of scoliosis, dysphonia, asthma, GERD, history of spinal fusion, status post appendectomy. Family and social history: [ ]. Pertinent exam findings / vital signs include febrile on arrival, unable to ambulate, mild tachycardia to 108, strength limited in lower extremities due to pain, sensation intact, no saddle anesthesia, has point tenderness over the lower lumbar spine without crepitus or step-off, no fluctuance, no erythema, has wheezing to lungs without respiratory distress, benign cardiac exam. Differential / pathologies of concern include renal colic, spinal epidural abscess, sepsis, respiratory infection, discitis, osteomyelitis, UTI, pyelonephritis, infected kidney stone. Diagnostic studies of: -CBC, CMP, lactate, lipase, magnesium, CRP/ESR, urinalysis, blood cultures, CT lumbar spine without/with contrast, CT thoracic spine wo/w, CT Chest/ABD/Pelvis wo contrast. Interventions of: -1 L IVF NS, 1g IV APAP, 15mg IV ketorolac, 0.5mg IV Ativan. ED Course/Assessment/Plan: 35-year-old male presents to the ED with severe lumbar back pain and fever for the past 4 days, had nausea vomiting and diarrhea today and has been unable to keep down his medications including cyclobenzaprine, has history of thoracolumbar fusion for scoliosis in 2007 frequent visits for severe exacerbations of acute back pain, has no signs of cauda equina on exam but with his surgical history and his fever I am concerned for possible infectious etiology of this area as well as other sources of infection with his wheezing. Patient is signed out to Dr. Rosenbaum at shift change with studies pending, patient is aware that he may need to stay for MRI to rule out pathology should we not find an obvious source of his fever. Disposition of Acute Lumbar Back Pain, Fever of Unknown Origin. Patient verbalized understanding of the plan and return to ED criteria and engaged in shared decision making. Medical Records Medical records reviewed: Yes I reviewed the patient's medical records. Imaging Data Radiologic Study: Attestation: I personally reviewed and interpreted this imaging study as follows: Imaging: CT Scan Radiologic Study #2: Attestation: I personally reviewed and interpreted this imaging study as follows: Imaging: CT Scan Lab Data Lab results reviewed: Yes I reviewed the patient's lab results. PFSH All Active Problems (Updated 05/05/25 @ 00:04 by LISSETTE SUAZO) Acute shoulder pain due to trauma (Acute) Acute tonsillitis (Acute) Tendinitis of long head of biceps brachii of right shoulder (Acute) Impingement syndrome of right shoulder (Acute) Bursitis of right shoulder (Acute) Pain in right acromioclavicular joint (Acute) Tendinitis of long head of biceps brachii of both shoulders (Acute) Chronic thoracic back pain (Acute) Cervicalgia (Acute) Cervical radiculopathy (Acute) Medical History Scoliosis Aspergers' syndrome Dysphonia Sleep apnea Asthma GERD (gastroesophageal reflux disease) ADHD Surgical History History of appendectomy History of spinal fusion Social History Smoking/Tobacco Use Status: Never Smoking risk assessment performed?: Yes Alcohol Intake: current Alcohol Intake frequency: holidays/special occasions only Drug use: Occasionally Substance use type: marijuana and other Details: CBD. Marijuana use a few puffs a day mostly at night to help me sleep. none used tonight Household members: none Housing: apartment Pets and animals: Yes Pets and animals: dog(s) Current gender identity: male What type of physical activity do you participate in: walking Seatbelt use: always Do you feel safe at home: Yes Do you feel safe in your relationship?: Yes
[2025-10-12 22:19] LABS: Abs Immature Grans 0.02 10^3/uL (0.0-0.06); HCT 45.9 % (40.0-50.0); HGB 15.7 g/dL (13.5-17.5); Immature Grans % 0.2 %; MCH 27.8 pg (27.0-33.0); MCHC 34.2 % (32.0-36.0); MCV 81 fL (80-95); MPV 10.1 fL (8.0-11.0); Platelet Count 279 10^3/uL (130-400); RBC 5.65 10^6/uL (4.36-5.78); RDW 12.2 % (11.8-14.1); RDW-SD 35.8 fL; WBC 9.37 10^3/uL (4.4-10.8)
[2025-10-12 22:23] LABS: ESR 3 mm/hr (0-15)
[2025-10-12] MEDS: Normal Saline 1,000 ML 1000 ML IV (22:26)
[2025-10-12] MEDS: ACETAMINOPHEN 1,000 MG/100 ML BAG 400 MG IVPB (22:26)
[2025-10-12] MEDS: LORazepam 2 MG/ML VIAL 0.5 MG IVP (22:29)
[2025-10-12 22:30] LABS: C-Reactive Protein 1.08 mg/dL (<=0.50); Lipase 29 U/L (<53); Magnesium 1.8 mg/dL (1.6-2.6)
[2025-10-12] MEDS: Ketorolac 15 MG/ML VIAL IVP (22:30)
[2025-10-12 22:32] LABS: ALT 21 U/L (10-49); AST 23 U/L (<34); Albumin 4.6 g/dL (3.2-5.0); Alkaline Phosphatase 78 U/L (46-116); Anion Gap 11.9 mmol/L (3-11); BUN 26 mg/dL (9-23); Bilirubin, Total 1.2 mg/dL (0.2-1.2); CO2 24.1 mmol/L (20.0-31.0); Calcium 9.1 mg/dL (8.3-10.6); Chloride 108 mmol/L (98-107); Glucose 112 mg/dL (74-106); Potassium 3.6 mmol/L (3.5-5.1); Sodium 144 mmol/L (136-145); Total Protein 7.5 g/dL (5.7-8.2)
[2025-10-12] MEDS: Omnipaque 350 MG/ML 100 ML BTL IJ (22:59)
[2025-10-12] MEDS: Normal Saline Flush 10 ML SYR IVP (22:59)
[2025-10-12] MEDS: Normal Saline - Diluent 50 ML VIAL IJ (22:59)
--- NOTE | 2025-10-12 23:03 | DI.CT_ITS ---
Exam(s) CT CHEST/ABD/PEL W CT THORACIC LUMBAR SPINE REC EXAM: CT CHEST/ABD/PEL W and CT thoracic and lumbar spine recons CLINICAL HISTORY: vomiting, fever, back pain TECHNIQUE: Imaging Protocol: Axial computed tomography images with coronal and sagittal reformatted images were created and reviewed. Lung Computer Aided Detection (CAD) was utilized. CONTRAST MATERIAL: Intravenous: Omnipaque 350 contrast volume:75 mL Oral: No COMPARISON: CT ABD PELVIS WITH CONTRAST from 12/25/[address] ABDOMEN PELVIS W from 10/15/2023 FINDINGS: There is artifact in the thoracic and lumbar spine due to the thoracolumbar spinal rods. CHEST: Tracheobronchial tree: Patent where visualized. No evidence of bronchiectasis. Pulmonary parenchyma: No consolidation or dominant measurable mass. No architectural distortion. Visualized thyroid gland: Unremarkable. Mediastinum and Jessika: No dominant adenopathy or fluid collection. The esophagus is unremarkable. There is soft tissue seen in the anterior mediastinum suggesting residual thymic tissue. Pleura: No effusion or pneumothorax. Heart: The heart is not dilated. No coronary artery calcifications are seen. No pericardial effusion. Pulmonary arteries: Due to the timing of the bolus, there is suboptimal opacification of the pulmonary arteries for evaluation of emboli. There is no large central pulmonary embolism in the main, right or left pulmonary arteries. Aorta: Thoracic aorta non-dilated. Lymph nodes: Within normal limits. Soft tissues: Unremarkable. Bones:Within normal limits for the patient's age. CT thoracic spine recons: The patient has a right convex thoracic scoliosis. There are spinal rods extending from the upper thoracic into the upper lumbar spine.There are no acute fractures or subluxations. No destructive changes are seen in the thoracic spine. The bones are normally mineralized. CT lumbar spine recons: There are no acute fractures or subluxations. The bones are normally mineralized. No destructive changes are seen. ABDOMEN: Liver: Normal density. No measurable mass. Portal, Superior Mesenteric, and Splenic Veins: Unremarkable. Gallbladder and Biliary Tract: No radiodense calculus or dilation. Pancreas: Normal density, no abnormal calcifications or inflammatory process. Spleen: Normal. Adrenals: No masses seen. Kidneys: Normal size, contour and axis. No radiodense stones or obstructive uropathy. No masses seen. Abdominal Aorta: Abdominal portion non-dilated. Bowel: No obstruction or bowel wall thickening. There are surgical clips seen in the base of the cecum suggesting prior appendectomy. There are fluid-filled loops of small large bowel which can be seen with a diarrheal illness. Peritoneal Cavity: No ascites, collection or mesenteric inflammatory response. No free air. Lymph Nodes: Within normal limits. Bones: Within normal limits for the patient's age. Incidental note is made of spina bifida occulta. Soft Tissues: Unremarkable. PELVIS: Bladder: Symmetric distention, no gross wall thickening. Reproductive Organs: Unremarkable as visualized. Lymph Nodes: Within normal limits. Bones: Within normal limits. IMPRESSION: 1. There is no acute pulmonary process. 2. There is artifact seen in the thoracic and lumbar spine secondary to the patient's spinal instrumentation. 3. There is no acute fracture or subluxation in the thoracic or lumbar spine. 4. There are fluid-filled loops of small and large bowel which can be seen with a diarrheal illness/gastroenteritis. Please correlate clinically. 5. No other evidence of an acute abdominal or pelvic process. 6. The preliminary [facility] report was reviewed. RADIATION DOSE DELIVERED: 370.71mGy.cm Total DLP DATA REPOSITORY: All CT scans at this facility are submitted to the National Radiology Data Registry (NRDR) Dose Index Registry (DIR) with the [employer] ([employer]). RADIATION OPTIMIZATION: All CT scans at this facility use at least one of these dose optimization techniques: automated exposure control; mA and/or kV adjustment per patient size (includes targeted exams where dose is matched to clinical indication); or iterative reconstruction.
--- NOTE | 2025-10-12 23:40 | DI.VRAD_ITS ---
PROCEDURE INFORMATION: Exam: CT Thoracic Spine Without Contrast Exam date and time: 10/12/2025 10:37 PM Age: 35 years old Clinical indication: Pain in thoracic spine; Without myelpathy or radiculopathy; Prior surgery; Surgery date: 6+ months; Surgery type: Spinal fusion; Low back pain, vomiting, fever TECHNIQUE: Imaging protocol: Computed tomography of the thoracic spine without contrast. Radiation optimization: All CT scans at this facility use at least one of these dose optimization techniques: automated exposure control; mA and/or kV adjustment per patient size (includes targeted exams where dose is matched to clinical indication); or iterative reconstruction. COMPARISON: MR THORACIC SPINE WO/W 04/22/2024 4:36 PM FINDINGS: Bones/joints: There is S-shaped scoliotic spinal curvature. There has been prior thoracolumbar fixation with posterior surgical fixation hardware extending from T4 through L3. There is extensive associated streak artifact. Within the limits of the exam, no acute fracture or gross vertebral offset is seen through the thoracic region. Within the limits of visualization, no thoracic stenosis is demonstrated. Soft tissues: No gross superficial soft tissue fluid collection or mass is seen through the visualized thoracic region. Lungs: The visualized lung haley appear clear. IMPRESSION: Prior thoracolumbar fusion. Extensive streak artifact. No acute fracture or gross vertebral offset seen. No thoracic stenosis. PROCEDURE INFORMATION: Exam: CT Lumbar Spine Without Contrast Exam date and time: 10/12/2025 10:37 PM Age: 35 years old Clinical indication: Pain in thoracic spine; Without myelpathy or radiculopathy; Prior surgery; Surgery date: 6+ months; Surgery type: Spinal fusion; Low back pain, vomiting, fever TECHNIQUE: Imaging protocol: Computed tomography of the lumbar spine without contrast. Radiation optimization: All CT scans at this facility use at least one of these dose optimization techniques: automated exposure control; mA and/or kV adjustment per patient size (includes targeted exams where dose is matched to clinical indication); or iterative reconstruction. COMPARISON: MR LUMBAR SPINE WO/W 04/22/2024 4:15 PM FINDINGS: Bones/joints: There is S-shaped scoliotic spinal curvature. There has been prior thoracolumbar fixation with posterior surgical fixation hardware extending from T4 through L3. There is extensive associated streak artifact. Within the limits of visualization, no acute fracture or gross vertebral offset is seen. No central canal narrowing or significant foraminal narrowing is demonstrated through the lumbar region. Within the limits of visualization, no focal disc herniation is seen. There is spina bifida occulta in the sacrum. Soft tissues: No gross superficial soft tissue fluid collection or mass is seen through the visualized lumbar region. IMPRESSION: Prior thoracolumbar fusion. Extensive streak artifact. No acute fracture seen. No central canal narrowing or significant foraminal narrowing demonstrated. Dictated and Authenticated by: Vince Black MD. Orderin Robi Ortez MD
[2025-10-12 23:49] LABS: RSV PCR Negative (Negative)
--- NOTE | 2025-10-12 23:49 | DI.VRAD_ITS ---
PROCEDURE INFORMATION: Exam: CT Chest With Contrast; Diagnostic Exam date and time: 10/12/2025 10:37 PM Age: 35 years old Clinical indication: Fever and vomiting; Prior surgery; Surgery date: 6+ months; Surgery type: Spinal fusion; Vomiting, fever, back pain TECHNIQUE: Imaging protocol: Diagnostic computed tomography of the chest with contrast. 3D rendering (Not supervised by radiologist): MIP and/or 3D reconstructed images were created by the technologist. Radiation optimization: All CT scans at this facility use at least one of these dose optimization techniques: automated exposure control; mA and/or kV adjustment per patient size (includes targeted exams where dose is matched to clinical indication); or iterative reconstruction. Contrast material: [id number]; Contrast volume: 75 ml; Contrast route: INTRAVENOUS (IV); COMPARISON: MR THORACIC SPINE WO/W 04/22/2024 4:36 PM FINDINGS: Thyroid: Thyroid gland partially excluded from view but grossly unremarkable through its visualized portion. Lungs: No pulmonary consolidation. Pleural spaces: No pleural effusion or pneumothorax. Heart: Normal-sized heart. Lymph nodes: No pathologically enlarged mediastinal or hilar lymph nodes. Vasculature: No thoracic aortic aneurysm or dissection. No pulmonary embolism identified. Bones/joints: S-shaped scoliotic spinal curvature. Prior thoracolumbar fusion. No acute fracture seen among the bones of the chest. Soft tissues: No gross soft tissue mass or fluid collection seen in the chest wall. Notes: CT imaging through the thoracolumbar spine obtained concurrently, dictated separately. IMPRESSION: 1. No active disease is seen in the chest. 2. Scoliotic spinal curvature with prior thoracolumbar fusion. PROCEDURE INFORMATION: Exam: CT Abdomen And Pelvis With Contrast Exam date and time: 10/12/2025 10:37 PM Age: 35 years old Clinical indication: Fever and vomiting; Prior surgery; Surgery date: 6+ months; Surgery type: Spinal fusion; Vomiting, fever, back pain TECHNIQUE: Imaging protocol: Computed tomography of the abdomen and pelvis with contrast. 3D rendering (Not supervised by radiologist): MIP and/or 3D reconstructed images were created by the technologist. Radiation optimization: All CT scans at this facility use at least one of these dose optimization techniques: automated exposure control; mA and/or kV adjustment per patient size (includes targeted exams where dose is matched to clinical indication); or iterative reconstruction. Contrast material: [id number]; Contrast volume: 75 ml; Contrast route: INTRAVENOUS (IV); COMPARISON: CT ABDOMEN PELVIS W 10/15/2023 3:52 AM FINDINGS: Liver: Normal appearing liver. Gallbladder and biliary ducts: Normal appearing gallbladder. No calcified gallstones. No biliary dilatation. Pancreas: Normal appearing pancreas. Spleen: Normal appearing spleen. Adrenal glands: Normal appearing adrenal glands. Kidneys and ureters: Normal appearing kidneys. No hydronephrosis. No obstructing ureteral stones. Stomach and bowel: No oral contrast. Stomach partially decompressed. No small bowel dilatation to suggest obstruction. Fluid and fecal material throughout the colon suspicious for diarrhea. No evidence of diverticulitis or colitis. Appendix: Appendix not identified. Surgical material at the cecal apex suggesting a prior appendectomy. Correlation with surgical history recommended. Intraperitoneal space: No gross ascites or free air. Vasculature: Normal caliber abdominal aorta. Lymph nodes: No pathologically enlarged mesenteric, retroperitoneal, or pelvic sidewall lymph nodes. Urinary bladder: Urinary bladder partially collapsed but grossly unremarkable, as seen. Reproductive: Normal-appearing prostate gland and seminal vesicles. Bones/joints: No acute fracture seen among the bones of the abdomen or pelvis. Soft tissues: No significant ventral or inguinal hernia. Notes: CT imaging through the thoracolumbar spine obtained concurrently, dictated separately. IMPRESSION: 1. Fluid and fecal material throughout the colon, nonspecific but commonly seen in the setting of diarrhea from any cause, including gastroenteritis. Clinical correlation recommended. 2. Scoliotic spinal curvature with prior thoracolumbar fusion. Dictated and Authenticated by: Vince Black MD. Orderin Robi Ortez MD
[2025-10-12 23:56] LABS: COVID-19 PCR Positive (Negative)
--- NOTE | 2025-10-12 23:59 | W.EDPROG ---
Date of service: 10/13/25 Time of Service: 00:01 Medical Decision Making Patient was signed out to me by my colleague Pérez Morales. Please refer to his HPI, physical exam, assessment and plan. Laboratory workup has returned, no white count or bandemia. Patient does have lymphopenia. ESR is normal, CRP is mildly elevated. Lactate normal. COVID test has returned positive. Electrolytes stable. BUN elevated at 26 suggesting dehydration. He was rehydrated with a liter of fluid and he is no longer vomiting and his nausea has resolved after antiemetics. Lipase is normal. CT scan of the chest and abdomen and thoracic and lumbar spine shows some diarrhea, but no other acute process in the spine or abdomen or chest. On reassessment patient's back pain is notably improved/resolved. He is feeling much better. Symptomatology is likely first COVID-19 causing fever nausea and vomiting, subsequent nausea and vomiting causes posturing and subsequent exacerbation of chronic back pain. Now that the patient is able to tolerate p.o. he will be able to tolerate his muscle relaxants which she has at home already. Will give Zofran for home use, recommend continued cyclobenzaprine. Patient stable for discharge. No evidence at this time to suggest paraspinal abscess, infectious discitis. He is not an IV or illicit drug user per patient. No other concerning inflammatory components to suggest acute life-threatening spinal etiology. Discussed red flags which to return. I have extensively reviewed the treatment plan and discharge instructions with the patient. I have addressed all patient concerns at this time. The patient was made aware of what symptoms to monitor for that would warrant a return to the emergency department. Discussed the plan with the patient, they demonstrate verbal understanding and agreement with our assessment and plan at this time. The documentation in this chart was dictated using [employer] dictation software. Please excuse any dictation errors. FINDINGS: Thyroid: Thyroid gland partially excluded from view but grossly unremarkable through its visualized portion. Lungs: No pulmonary consolidation. Pleural spaces: No pleural effusion or pneumothorax. Heart: Normal-sized heart. Lymph nodes: No pathologically enlarged mediastinal or hilar lymph nodes. Vasculature: No thoracic aortic aneurysm or dissection. No pulmonary embolism identified. Bones/joints: S-shaped scoliotic spinal curvature. Prior thoracolumbar fusion. No acute fracture seen among the bones of the chest. Soft tissues: No gross soft tissue mass or fluid collection seen in the chest wall. Notes: CT imaging through the thoracolumbar spine obtained concurrently, dictated separately. IMPRESSION: 1. No active disease is seen in the chest. 2. Scoliotic spinal curvature with prior thoracolumbar fusion FINDINGS: Liver: Normal appearing liver. Gallbladder and biliary ducts: Normal appearing gallbladder. No calcified gallstones. No biliary dilatation. Pancreas: Normal appearing pancreas. Spleen: Normal appearing spleen. Adrenal glands: Normal appearing adrenal glands. Kidneys and ureters: Normal appearing kidneys. No hydronephrosis. No obstructing ureteral stones. Stomach and bowel: No oral contrast. Stomach partially decompressed. No small bowel dilatation to suggest obstruction. Fluid and fecal material throughout the colon suspicious for diarrhea. No evidence of diverticulitis or colitis. Appendix: Appendix not identified. Surgical material at the cecal apex suggesting a prior appendectomy. Correlation with surgical history recommended. Intraperitoneal space: No gross ascites or free air. Vasculature: Normal caliber abdominal aorta. Lymph nodes: No pathologically enlarged mesenteric, retroperitoneal, or pelvic sidewall lymph nodes. Urinary bladder: Urinary bladder partially collapsed but grossly unremarkable, as seen. Reproductive: Normal-appearing prostate gland and seminal vesicles. Bones/joints: No acute fracture seen among the bones of the abdomen or pelvis. Soft tissues: No significant ventral or inguinal hernia. Notes: CT imaging through the thoracolumbar spine obtained concurrently, dictated separately. IMPRESSION: 1. Fluid and fecal material throughout the colon, nonspecific but commonly seen in the setting of diarrhea from any cause, including gastroenteritis. Clinical correlation recommended. 2. Scoliotic spinal curvature with prior thoracolumbar fusion. Thank you for allowing us to participate in the care of your patient. Dictated and Authenticated by: Vince Black MD 10/12/2025 11:48 PM Eastern Time ([place] & [place]) Discharge Plan Disposition Patient Disposition: Home Condition: Good Discharge Details Clinical Impression: COVID-19, Vomiting, Back pain Primary Care Provider: Pablo Lowe ED Provider: Pérez Rosenbaum Home Meds and New Rx's Prescriptions: New ondansetron 4 mg tablet,disintegrating 4 mg PO Q8H Qty: 20 0RF No Action omeprazole 20 mg capsule,delayed release(DR/EC) 20 mg PO DAILY PRN naproxen 250 mg tablet 250 - 500 mg PO BID PRN (Reason: Moderate pain or swelling) Qty: 60 0RF acetaminophen [Tylenol] 325 mg Tablet 650 mg PO Q6H PRN PRNQty: 0 0RF budesonide-formoterol [Symbicort] 80-4.5 mcg/actuation HFA aerosol inhaler 2 inh INHALATION PRN PRN Patient Comments: INHALE 2 PUFFS BY MOUTH TWICE DAILY lidocaine [Lidoderm] 5 % adhesive patch,medicated 1 patch topical DAILY Qty: 15 0RF Rx Instructions: leave on most painful area for up to 12 hrs cyclobenzaprine 5 mg tablet 5 mg PO QHS PRN (Reason: muscle spasm) Qty: 7 0RF Discharge Instructions Instructions: Nausea and Vomiting, Adult ED Additional Instructions: Your workup has returned and shows no evidence of abscess in your back, significant intra-abdominal pathology, or severe infection around your spine. At this time you are COVID-19 positive, which is causing nausea and vomiting. This subsequently is exacerbating your chronic back pain. Please drink plenty of fluids and stay well-hydrated. Take Tylenol and Motrin as needed for pain or fever. Please take the Zofran that was prescribed to help with the nausea. Take your cyclobenzaprine and Lidoderm patches as prescribed to help with your back pain. If you notice any worsening of your symptoms, or any new symptoms such as vomiting, diarrhea, fever, chills, shortness of breath, chest pain, numbness, weakness, or fainting , please return immediately to the emergency department for reevaluation. Please follow up with your primary care provider as soon as possible for reassessment and reevaluation. As always, it was a pleasure participating in your medical care today. Stand Alone Forms: Portal Information Referrals: Pablo Lowe [Primary Care Provider, Medicine]
[2025-10-13] MEDS: Ondansetron 4 MG/2 ML VIAL IVP (00:15)
[2025-10-13] MEDS: Ondansetron O.D.T. 4 MG TABEF, 3 TABS/BTL PO (00:16)
[2025-10-13 00:36] VITALS: BP 103/59; RESP 18; TEMP 36.9; O2SAT 95
== END 2025-10-13 01:25 | disposition home or self-care (01) ==
PROVIDERS: Physician Assistant; Emergency Provider Student in an Organized Health Care Education/Training Program; PCP Physician Assistant
DX: U07.1 COVID-19 (principal); Z11.52 Encounter for screening for COVID-19; R11.2 Nausea with vomiting, unspecified; R19.7 Diarrhea, unspecified; M54.50 Low back pain, unspecified
CPT/HCPCS: 00123; 36415; 74177; 80053; 83690; 85652; 87040; 87637; 96365; 96375; 99285; 71260; 83605; 83735; 85025; 86140; 99284; J0131; J1885; J2060; J2405; J3490